=== PATIENT | male | born 1965 | race Caucasian/White ===

== ENCOUNTER → 2016-07-21 | Outpatient (CLI) | payer OTHER ==
[2016-07-21 13:37] LABS: ALANINE AMINOTRANSFERASE 35 U/L (21-72); ALBUMIN 4.6 g/dL (3.5-5.0); ALKALINE PHOSPHATASE 69 U/L (38-126); ANION GAP 11 (5-19); ASPARTATE AMINO TRANSFERASE 24 U/L (17-59); BLOOD UREA NITROGEN 19 mg/dL (7-20); CALCIUM 10.5 mg/dL (8.4-10.2); CARBON DIOXIDE 27 mmol/L (22-30); CHLORIDE 98 mmol/L (98-107); CHOLESTEROL 222.58 mg/dL (0-200); CREATININE RESULT 0.64 mg/dL (0.52-1.25); Direct HDL 41 mg/dL (>40); GLUCOSE 182 mg/dL (75-110); POTASSIUM 4.5 mmol/L (3.6-5.0); SODIUM 136.2 mmol/L (137-145); TRIGLYCERIDES 482 mg/dL (<150)
[2016-07-21 13:51] LABS: DIRECT LDL 103 mg/dL (<100)
== END ==
LOC: CCC 12:14
DX: E11.8 Type 2 diabetes mellitus with unspecified complications (principal)
CPT/HCPCS: 36415; 80053; 80061; 83036

== ENCOUNTER 2018-11-17 05:18 | Emergency (ER) | payer MEDICAID, OTHER ==
[2018-11-17] MEDS ORDERED: ASPIRIN 81 MG TABLET, CHEWABLE PO ONE (05:34)
[2018-11-17 05:53] LABS: ABSOLUTE BASOPHILS # (AUTO) 0.1 10^3/uL (0.0-0.2); ABSOLUTE EOSINOPHILS # (AUTO) 0.2 10^3/uL (0.0-0.6); ABSOLUTE LYMPHOCYTES (AUTO) 1.1 10^3/uL (0.5-4.7); ABSOLUTE MONOCYTES (AUTO) 0.7 10^3/uL (0.1-1.4); ABSOLUTE NEUT (AUTO) 8.1 10^3/uL (1.7-8.2); BASOPHILS % (AUTO) 0.8 % (0-2); EOSINOPHILS % (AUTO) 1.6 % (0-6); HEMATOCRIT 44.2 % (37.9-51.0); HEMOGLOBIN 15.7 g/dL (13.5-17.0); LYMPHOCYTES % (AUTO) 11.3 % (13-45); MEAN CORPUSCULAR HEMOGLOBIN 31.1 pg (27.0-33.4); MEAN CORPUSCULAR HGB CONC 35.6 g/dL (32.0-36.0); MEAN CORPUSCULAR VOLUME 87 fl (80-97); MONOCYTES % (AUTO) 6.8 % (3-13); PLATELET COUNT 154 10^3/uL (150-450); RED BLOOD COUNT 5.06 10^6/uL (4.35-5.55); SEGMENTED NEUTROPHILS % (AUTO) 79.5 % (42-78); TOTAL CELLS COUNTED % (AUTO) 100 %; WHITE BLOOD COUNT 10.1 10^3/uL (4.0-10.5)
[2018-11-17 06:13] LABS: ALANINE AMINOTRANSFERASE 39 U/L (21-72); ALBUMIN 4.7 g/dL (3.5-5.0); ALKALINE PHOSPHATASE 82 U/L (38-126); ANION GAP 11 (5-19); ASPARTATE AMINO TRANSFERASE 30 U/L (17-59); BILIRUBIN,DIRECT 0.3 mg/dL (0.0-0.4); BILIRUBIN,TOTAL 0.8 mg/dL (0.2-1.3); BLOOD UREA NITROGEN 22 mg/dL (7-20); CALCIUM 9.8 mg/dL (8.4-10.2); CARBON DIOXIDE 28 mmol/L (22-30); CHLORIDE 98 mmol/L (98-107); CREATINE KINASE 129 U/L (55-170); GLUCOSE 263 mg/dL (75-110); POTASSIUM 4.6 mmol/L (3.6-5.0); SODIUM 136.5 mmol/L (137-145); TOTAL PROTEIN 7.7 g/dL (6.3-8.2)
--- NOTE | 2018-11-17 06:15 | RADIOLOGY REPORT (SQ) ---
EXAM DESCRIPTION: XR CHEST 1 VIEW COMPLETED DATE/TME: 11/17/2018 05:34 CLINICAL HISTORY: 53 years, Male, chest pain COMPARISON: 01/19/2012 NUMBER OF VIEWS: One TECHNIQUE: AP view of the chest LIMITATIONS: None. FINDINGS: Bibasilar interstitial opacities. The heart is normal in size. There is no pneumothorax or pleural effusion. The bones are unremarkable. IMPRESSION: Bibasilar interstitial opacities, likely representing atelectasis or possibly pneumonia. copyright 2010 [employer]- All Rights Reserved
[2018-11-17 06:23] LABS: CREATINE KINASE MB 2.25 ng/mL (<4.55); TROPONIN I < 0.012 ng/mL
[2018-11-17] MEDS ORDERED: OXYCODONE-ACETAMINOPHEN 5-325 MG TABLET PO ONE (07:14)
[2018-11-17] MEDS ORDERED: ONDANSETRON HCL INJ/PF 4 MG/2 ML SDV IV ONE (07:14)
[2018-11-17] MEDS ORDERED: NORMAL SALINE 1000 ML 1,000 ML IV ONE (07:14)
--- NOTE | 2018-11-17 09:24 | RADIOLOGY REPORT (SQ) ---
EXAM DESCRIPTION: U/S ABDOMEN LIMITED W/O DOP COMPLETED DATE/TIME: 11/17/2018 9:06 am REASON FOR STUDY: epigastric pain, h/o pancreatitis COMPARISON: None. TECHNIQUE: Dynamic and static grayscale images acquired of the abdomen and recorded on PACS. Additio fletcher selected color Doppler and spectral images recorded. LIMITATIONS: None. FINDINGS: PANCREAS: Poorly seen. No obvious masses LIVER: Fatty infiltration. No focal masses. 18 cm. LIVER VASCULATURE: Normal directional flow of the main portal vein and hepatic veins. GALLBLADDER: No stones. Normal wall thickness. No pericholecystic fluid. ULTRASOUND-DETECTED NELSON'S SIGN: Negative. INTRAHEPATIC DUCTS AND COMMON DUCT: CBD and intrahepatic ducts normal caliber. No filling defects. INFERIOR VENA CAVA: Normal flow. AORTA: No aneurysm. RIGHT KIDNEY: Normal size. Normal echogenicity. No solid or suspicious masses. No hydronephrosis. No calcifications. PERITONEAL AND RIGHT PLEURAL SPACE: No ascites or effusions. OTHER: No other significant findings. IMPRESSION: Fatty infiltration of the liver. No gallstones. TECHNICAL DOCUMENTATION: JOB ID: [id number]- All Rights Reserved Reading location - IP/workstation name: [email or web address]
[2018-11-17 12:07] VITALS: BP 162/94
--- NOTE | 2018-11-17 12:09 | EKG REPORT ---
SEVERITY:- OTHERWISE NORMAL ECG - SINUS TACHYCARDIA BORDERLINE LEFT AXIS DEVIATION : Confirmed by: Dai Heredia MD 17-Nov-2018 12:09:01
--- NOTE | 2018-11-17 14:51 | ER Document Report ---
Entered by JOHN DALLAS SCRIBE 11/17/18 0816 Acting as scribe for:SEVERINO KNOTT DO ED General - General Chief Complaint: Chest Pain Stated Complaint: CHEST PAINS Time Seen by Provider: 11/17/18 06:18 Primary Care Provider: JHOAN DANIEL MD [Primary Care Provider] - Follow up as needed Mode of Arrival: Ambulatory Information source: Patient Notes: Patient is a 53 year old male with a history of recurrent pancreatitis, type 2 diabetes, neuropathy presents to the emergency department complaining of upper abdominal pain, chest pain, global headache and body soreness onset 4 days ago. Patient states he 1st developed generalized body soreness 4 days ago that he thought was the beginning of a cold. He states his abdominal pain is located across is upper abdomen, worse epigastrically that radiates into his chest. He states this pain is similar to prior episodes of pancreatitis. Patient states his pain significantly worsened last night. He further complains of abdominal distension and recently vomiting further stating he has a history of vomiting every 5-6 weeks due to his medical history. He denies any diarrhea, vision changes fevers or hematemesis. Patient also complains of general numbness in his joints and reports increased sleepiness further stating he has been sleeping approximately 18hrs for the last few days. He further complains of a possible oral infection further stating he is having pain around is left maxilla. Patient reports taking 25 units of Lipase and gabbapentin. TRAVEL OUTSIDE OF THE [place] IN LAST 30 DAYS: No - Related Data Allergies/Adverse Reactions: hydromorphone [From Dilaudid] Allergy (Verified 05/22/16 00:18) Past Medical History - General Information source: Patient - Social History Smoking Status: Current Every Day Smoker Cigarette use (# per day): Yes Chew tobacco use (# tins/day): No Smoking Education Provided: No Frequency of alcohol use: None Drug Abuse: None Lives with: Family Family History: Reviewed & Not Pertinent Patient has suicidal ideation: No Patient has homicidal ideation: No Endocrine Medical History: Reports: Hx Diabetes Mellitus Type 2 GI Medical History: Reports: Hx Pancreatitis Past Surgical History: Reports: Hx Orthopedic Surgery - right hip replacement - Immunizations Hx Diphtheria, Pertussis, Tetanus Vaccination: Yes Review of Systems - Review of Systems Constitutional: See HPI EENT: No symptoms reported Cardiovascular: See HPI, Chest pain Respiratory: No symptoms reported Gastrointestinal: See HPI, Abdominal pain, Vomiting Genitourinary: No symptoms reported Male Genitourinary: No symptoms reported Musculoskeletal: See HPI Skin: No symptoms reported Hematologic/Lymphatic: No symptoms reported Neurological/Psychological: No symptoms reported -: Yes All other systems reviewed and negative Physical Exam - Vital signs Vitals: Temp Pulse Resp BP Pulse Ox 98.5 F 113 H 28 H 166/93 H 93 11/17/18 05:35 11/17/18 05:35 11/17/18 05:35 11/17/18 05:35 11/17/18 05:35 - Notes Notes: GENERAL: Alert, interacts well. No acute distress. HEAD: Normocephalic, atraumatic. EYES: Pupils equal, round, and reactive to light. Extraocular movements intact. ENT: Oral mucosa moist, tongue midline. No erythema around the left medial and lateral upper incisors, no signs of infection. NECK: Full range of motion. Supple. Trachea midline. No meningismus, able to fl ex, extend and move neck from side to side without difficulty. LUNGS: Deep inspirations, stops before full capacity breath. Clear to auscultation bilaterally, no wheezes, rales, or rhonchi. No respiratory distress. HEART: Regular rate and rhythm. No murmurs, gallops, or rubs. ABDOMEN: Soft, tender to palpation epigastrically, guarding. Non-distended. Bowel sounds present in all 4 quadrants. No rigidity or rebounding. EXTREMITIES: Moves all 4 extremities spontaneously. No edema, radial and dorsalis pedis pulses 2/4 bilaterally. No cyanosis. NEUROLOGICAL: Alert and oriented x3. Normal speech. PSYCH: Normal affect, normal mood. SKIN: Warm, dry, normal turgor. No rashes or lesions noted. Course - Re-evaluation Re-evalutation: 11/17/18 11:32 CBC unremarkable, CMP shows elevated glucose and slightly elevated BUN, troponin negative x2, lipase elevated at 2725.7. Abdominal ultrasound does not show any acute process, pancreas is not well-visualized. No signs of cholecystitis or cholelithiasis. Chest x-ray shows bilateral atelectasis versus pneumonia. Suspect atelectasis due to pain from pancreatitis rather than pneumonia as he does not have a significant change to his cough, any leukocytosis or any fever. I have observed the patient taking shallow breaths due to pain. Patient will be treated with an incentive spirometer for the atelectasis. Asked to return for fever or worsening cough or increasing pain. [place] otitis will be treated with clear liquid diet, limited course of Percocet, Zofran and Phenergan. Discharged home. - Vital Signs Vital signs: Temp Pulse Resp BP Pulse Ox 98.3 F 113 H 26 H 162/94 H 95 11/17/18 11:49 11/17/18 05:35 11/17/18 12:01 11/17/18 12:01 11/17/18 12:01 - Laboratory Result Diagrams: 11/17/18 05:42 11/17/18 05:42 Laboratory results interpreted by me: 11/17/18 11/17/18 11/17/18 05:42 05:42 05:42 Seg Neutrophils % 79.5 H Lymphocytes % 11.3 L Sodium 136.5 L BUN 22 H Glucose 263 H Lipase 2725.7 H Discharge - Discharge Clinical Impression: Atelectasis of both lungs Acute pancreatitis Qualifiers: Pancreatitis type: unspecified pancreatitis type Acute pancreatitis complication: no infection or necrosis Qualified Code(s): K85.90 - Acute pancreatitis without necrosis or infection, unspecified Condition: Stable Disposition: HOME, SELF-CARE Additional Instructions: Pancreatitis Pancreatitis is an inflammation of the pancreas, an organ at the back of your abdomen. The pancreas produces insulin and enzymes that digest your food. Pancreatitis can be caused by gallstones in the bile duct, by alcohol or viruses, or by excess fat or calcium in the blood stream. Occasionally, pancreatitis occurs when a stomach ulcer reyes through into the pancreas. We try to find the cause of pancreatitis, but some tests can't be done until the pancreas heals. The usual symptoms of pancreatitis are pain in the pit of the stomach that goes straight through to the back, vomiting, and low-grade fever. Severe cases require hospital admission, but many patients with mild pancreatitis do well at home. You will probably need medicine for pain and for vomiting. Sometimes we prescribe medicine to decrease stomach acid secretion and to decrease flow of pancreatic juices. Start with a diet of clear liquids (soda pop, juices). When the pain is decreasing, you can add some simple starches (potato, toast, applesauce). Avoid proteins and fats until you are completely painfree. When you're better, your doctor may suggest treatment to prevent future pancreatitis (such as gallbladder removal). Avoid alcohol forever. Get imm ediate treatment for any future episodes. Contact your doctor at once or return here if you have increasing pain, shortness of breath, general swelling, increasing size of the abdomen, continued vomiting, muscle spasms, or other new symptoms. Atelectasis Your symptoms are due to partial collapse of the lung, called atelectasis. When lung air sacs aren't filled properly with air, they can collapse. This is common after surgery. It may occur whenever breathing is weak or painful. To correct the collapse, we need to get your lung air sacs to open. Do b reathing exercises for the next two days. Every 15 minutes while awake, rapidly suck in a full breath and hold it a few seconds. Sometimes we'll prescribe a machine to measure your progress. Call or return if there's increasing shortness of breath, fever or chills, increasing chest pain, productive cough, or coughing of blood. Prescriptions: Oxycodone HCl/Acetaminophen [Percocet 5-325 mg Tablet] 1 tab PO Q4HP PRN #15 tablet PRN Reason: Promethazine HCl [Phenergan 25 mg Tablet] 25 mg PO Q4HP PRN #14 tablet PRN Reason: Ondansetron [Zofran Odt 4 mg Tablet] 1 - 2 tab PO Q4H PRN #15 tab.rapdis PRN Reason: For Nausea/Vomiting Referrals: JHOAN DANIEL MD [Primary Care Provider] - Follow up as needed I personally performed the services described in the documentation, reviewed and edited the documentation which was dictated to the scribe in my presence, and it accurately records my words and actions.
== END 2018-11-17 12:07 | disposition home or self-care (01) ==
LOC: ER 05:18
DX: J98.11 Atelectasis (principal); K85.90 Acute pancreatitis without necrosis or infection, unspecified; R07.9 Chest pain, unspecified; R10.9 Unspecified abdominal pain; R11.10 Vomiting, unspecified; F17.210 Nicotine dependence, cigarettes, uncomplicated; E11.9 Type 2 diabetes mellitus without complications; Z96.641 Presence of right artificial hip joint
CPT/HCPCS: 93005; 99285; 96361; 96374; 36415; 82553; 82550; 83690; 85025; 80053; 84484; 71045; 76705; 93010; J2405; J7030

== ENCOUNTER 2019-07-03 00:27 | Inpatient (IN) | payer MEDICAID ==
[2019-07-03] MEDS ORDERED: NORMAL SALINE 1000 ML 1,000 ML IV ONE ×2 (01:02→06:22)
--- NOTE | 2019-07-03 01:07 | ER Document Report ---
ED Medical Screen (RME) - General Chief Complaint: Foot Pain Stated Complaint: RIGHT LEG/FOOT DISCOLORED,SWOLLEN,SUGAR ISSUES Time Seen by Provider: 07/03/19 01:02 Primary Care Provider: JHOAN DANIEL MD [Primary Care Provider] - Follow up as needed Information source: Patient Notes: Patient presents with pain to right lower extremity. Patient with redness, swelling and warmth to right foot with streaking that extends to the right lower leg. Patient reports that blood sugars been elevated at home despite taking his medications. Accu-Chek in triage is 382 mg/dL. Patient with diabetic foot wound to plantar surface of right foot. Patient was not aware that he had this. When patient was asked if he had had a fever, patient replies that he had flu over the weekend in which he had subjective fever and was in his bed the entire time. Patient was not tested for influenza. Patient with a history of diabetes, neuropathy and chronic pancreatitis. Patient states he has a history of hypertension although is not compliant with antihypertensive medications. I have greeted and performed a rapid initial assessment of this patient. A comprehensive ED assessment and evaluation of the patient, analysis of test results and completion of the medical decision making process will be conducted by additional ED providers. TRAVEL OUTSIDE OF THE [place] IN LAST 30 DAYS: No - Related Data Allergies/Adverse Reactions: hydromorphone [From Dilaudid] Allergy (Verified 07/03/19 01:05) debra Allergy (Verified 07/03/19 01:05) Past Medical History Endocrine Medical History: Reports: Hx Diabetes Mellitus Type 2 Renal/ Medical History: Denies: Hx Peritoneal Dialysis GI Medical History: Reports: Hx Pancreatitis Past Surgical History: Reports: Hx Orthopedic Surgery - right hip replacement - Immunizations Hx Diphtheria, Pertussis, Tetanus Vaccination: Yes Physical Exam - Vital signs Vitals: Temp Pulse Resp BP Pulse Ox 98.3 F 93 20 154/81 H 95 07/03/19 00:45 07/03/19 00:45 07/03/19 00:45 07/03/19 00:45 07/03/19 00:45 - General Notes: Erythema to right foot with streaking to the right lower leg. Tenderness to right lower leg and right medial thigh. Patient with foot ulcer to the plantar surface of the right foot. Patient with 2+ dorsalis pedis pulse. Course - Vital Signs Vital signs: Temp Pulse Resp BP Pulse Ox 98.3 F 93 20 154/81 H 95 07/03/19 00:45 07/03/19 00:45 07/03/19 00:45 07/03/19 00:45 07/03/19 00:45 - Laboratory Laboratory results interpreted by me: 07/03/19 00:55 POC Glucose 382 H Doctor's Discharge - Discharge Referrals: JHOAN DANIEL MD [Primary Care Provider] - Follow up as needed
[2019-07-03 02:13] LABS: ABSOLUTE LYMPHOCYTES (AUTO) 0.9 10^3/uL (0.5-4.7); ABSOLUTE MONOCYTES (AUTO) 0.6 10^3/uL (0.1-1.4); ABSOLUTE NEUT (AUTO) 6.4 10^3/uL (1.7-8.2); BASOPHILS % (AUTO) 0.2 % (0-2); EOSINOPHILS % (AUTO) 0.5 % (0-6); HEMATOCRIT 41.9 % (37.9-51.0); HEMOGLOBIN 14.4 g/dL (13.5-17.0); LYMPHOCYTES % (AUTO) 11.7 % (13-45); MEAN CORPUSCULAR HEMOGLOBIN 29.6 pg (27.0-33.4); MEAN CORPUSCULAR HGB CONC 34.4 g/dL (32.0-36.0); MEAN CORPUSCULAR VOLUME 86 fl (80-97); MONOCYTES % (AUTO) 7.5 % (3-13); PLATELET COUNT 116 10^3/uL (150-450); RED BLOOD COUNT 4.87 10^6/uL (4.35-5.55); RED CELL DISTRIBUTION WIDTH 14.1 % (11.5-14.0); SEGMENTED NEUTROPHILS % (AUTO) 80.1 % (42-78); TOTAL CELLS COUNTED % (AUTO) 100 %; WHITE BLOOD COUNT 7.9 10^3/uL (4.0-10.5)
--- NOTE | 2019-07-03 02:15 | RADIOLOGY REPORT (SQ) ---
Right foot radiographs: 07/03/2019 1:13 AM COMMUNITY REPRESENTATIVE TECHNIQUE: AP, lateral, oblique images of the right foot were obtained. COMPARISON: None available History: 53-year-old patient with Diabetic foot ulcer FINDINGS: There is some lucency seen at the base of the second toe which could represent an area of ulceration. There are no acute osseous abnormalities to suggest a fracture or subluxation within the right foot. There is evidence of Achilles enthesopathy. If there is concern for osteomyelitis, an MRI or multiphasic bone scan should be considered. IMPRESSION: No acute osseous abnormality is seen within the right foot.
[2019-07-03 02:29] LABS: ALBUMIN 3.7 g/dL (3.5-5.0); ALKALINE PHOSPHATASE 84 U/L (38-126); ANION GAP 10 (5-19); ASPARTATE AMINO TRANSFERASE 33 U/L (17-59); BILIRUBIN,DIRECT 0.3 mg/dL (0.0-0.4); BILIRUBIN,TOTAL 0.6 mg/dL (0.2-1.3); BLOOD UREA NITROGEN 18 mg/dL (7-20); CARBON DIOXIDE 29 mmol/L (22-30); CHLORIDE 97 mmol/L (98-107); GLUCOSE 373 mg/dL (75-110); POTASSIUM 4.2 mmol/L (3.6-5.0); TOTAL PROTEIN 6.6 g/dL (6.3-8.2)
[2019-07-03 05:06] LABS: VENOUS BLOOD HCO3 24.7 mmol/L (20-32); VENOUS BLOOD PCO2 40.6 mmHg (35-63); VENOUS BLOOD PH 7.4 (7.30-7.42)
[2019-07-03] MEDS ORDERED: VANCOMYCIN HCL INJ 1000 MG VIAL IV ONE (06:22)
--- NOTE | 2019-07-03 07:17 | ER Document Report ---
ED Extremity Problem, Lower - General Chief Complaint: Wound Infection Stated Complaint: RIGHT LEG/FOOT DISCOLORED,SWOLLEN,SUGAR ISSUES Time Seen by Provider: 07/03/19 01:02 Primary Care Provider: JHOAN DANIEL MD [HONORARY] - Follow up as needed Mode of Arrival: Ambulatory Information source: Patient TRAVEL OUTSIDE OF THE [place] IN LAST 30 DAYS: No - HPI Notes: Patient presents with right foot pain. He states his right foot and leg have been progressively swelling and hurting for the last week. He states that this pain is a throbbing and sharp pain. It radiates up the right leg. It is worse with movement and better with rest. It is constant. He has had no fever or chills. He states he is diabetic. He states he does not know of any trauma to the leg. No vomiting or diarrhea. - Related Data Allergies/Adverse Reactions: hydromorphone [From Dilaudid] Allergy (Verified 07/03/19 01:05) debra Allergy (Verified 07/03/19 01:05) Past Medical History - General Information source: Patient - Social History Smoking Status: Current Every Day Smoker Chew tobacco use (# tins/day): No Frequency of alcohol use: None Drug Abuse: None Family History: Reviewed & Not Pertinent Patient has suicidal ideation: No Patient has homicidal ideation: No Endocrine Medical History: Reports: Hx Diabetes Mellitus Type 2 Renal/ Medical History: Denies: Hx Peritoneal Dialysis GI Medical History: Reports: Hx Pancreatitis Past Surgical History: Reports: Hx Orthopedic Surgery - right hip replacement - Immunizations Hx Diphtheria, Pertussis, Tetanus Vaccination: Yes Review of Systems - Review of Systems Constitutional: denies: Chills, Fever Cardiovascular: denies: Chest pain, Palpitations Respiratory: denies: Cough, Short of breath Gastrointestinal: denies: Diarrhea, Vomiting -: Yes All other systems reviewed and negative Physical Exam - Vital signs Vitals: Temp Pulse Resp BP Pulse Ox 98.3 F 93 20 154/81 H 95 07/03/19 00:45 07/03/19 00:45 07/03/19 00:45 07/03/19 00:45 07/03/19 00:45 Interpretation: Hypertensive - General General appearance: Appears well, Alert In distress: None - HEENT Head: Normocephalic, Atraumatic Eyes: Normal Pupils: PERRL - Respiratory Respiratory status: No respiratory distress Chest status: Nontender Breath sounds: Normal Chest palpation: Normal - Cardiovascular Rhythm: Regular Heart sounds: Normal auscultation Murmur: No - Abdominal Inspection: Normal Distension: No distension Bowel sounds: Normal Tenderness: Nontender Organomegaly: No organomegaly - Back Back: Normal, Nontender - Extremities General upper extremity: Normal inspection, Nontender, Normal color, Normal ROM, Normal temperature General lower extremity: Other - Patient's right lower extremity has diffuse swelling of the foot and lower leg. Patient has signs of lymphangitis. Patient has tenderness about the foot and lower leg as well. Patient has erythema and warmth of this area as well. Exam is consistent with cellulitis. Patient has some small areas of necrosis to the sole of the right foot.. No: Marjan's sign - Neurological Neuro grossly intact: Yes Cognition: Normal Orientation: AAOx4 [place] Coma Scale Eye Opening: Spontaneous [place] Coma Scale Verbal: Oriented [place] Coma Scale Motor: Obeys Commands [place] Coma Scale Total: 15 Speech: Normal Motor strength normal: LUE, RUE, LLE, RLE Sensory: Normal - Psychological Associated symptoms: Normal affect, Normal mood - Skin Skin Temperature: Warm Skin Moisture: Dry Skin Color: Normal Course - Re-evaluation Re-evalutation: 07/03/19 07:15 Patient has an obvious diabetic foot infection with extension of the cellulitis into the lower leg with lymphangitis. He will be started on fluids and antibiotics and admitted to the hospital. - Vital Signs Vital signs: Temp Pulse Resp BP Pulse Ox 98.5 F 88 20 167/86 H 94 07/03/19 04:21 07/03/19 04:21 07/03/19 04:21 07/03/19 04:21 07/03/19 04:21 - Laboratory Result Diagrams: 07/03/19 01:25 07/03/19 01:25 Laboratory results interpreted by me: 07/03/19 07/03/19 07/03/19 00:55 01:25 01:25 RDW 14.1 H Plt Count 116 L Lymph % (Auto) 11.7 L Seg Neutrophils % 80.1 H Sodium 135.5 L Chloride 97 L Glucose 373 H POC Glucose 382 H - Diagnostic Test Radiology reviewed: Image reviewed, Reports reviewed Discharge - Discharge Clinical Impression: Diabetic infection of right foot, Cellulitis of right lower leg Condition: Fair Disposition: ADMITTED INPATIENT Admitting Provider: Mitchell (Hospitalist) Unit Admitted: Medical Floor Referrals: JHOAN DANIEL MD [HONORARY] - Follow up as needed
[2019-07-03] MEDS ORDERED: MORPHINE SULFATE 10 MG/ML INJ IV ONE (07:45)
[2019-07-03] MEDS ORDERED: ONDANSETRON HCL INJ/PF 4 MG/2 ML SDV IV PRN (08:46)
[2019-07-03] MEDS ORDERED: MAGNESIUM HYDROXIDE SUSP 30 ML UDCUP PO PRN (08:46)
[2019-07-03] MEDS ORDERED: IPRATROPIUM/ALBUTEROL 0.5-2.5 MG/3 ML AMPUL NEB PRN (08:46)
[2019-07-03] MEDS ORDERED: TEMAZEPAM 15 MG CAPSULE PO PRN (08:46)
[2019-07-03] MEDS ORDERED: ZOLPIDEM TARTRATE 5 MG TABLET PO PRN (08:46)
[2019-07-03] MEDS ORDERED: DEXTROSE 50%-WATER 25 GM/50 ML DISP.SYRIN IV PRN ×2 (09:08)
[2019-07-03] MEDS ORDERED: DEXTROSE 40% GEL 15 GM TUBE PO PRN ×2 (09:08)
[2019-07-03] MEDS ORDERED: GLUCAGON,HUMAN RECOMB 1 MG INJ IM PRN (09:08)
[2019-07-03] MEDS ORDERED: VANCOMYCIN HCL 0 MG in DEXTROSE 5%-WATER 250 ML IV NR (09:15)
[2019-07-03] MEDS ORDERED: INSULIN GLARGINE,HUM.REC.ANLOG 1,000 UNIT/10 ML VIAL SUBCUT SCH (10:00)
[2019-07-03] MEDS ORDERED: ENOXAPARIN SODIUM INJ 40 MG/0.4 ML DISP.SYRIN SUBCUT ONE (12:15)
[2019-07-03] MEDS ORDERED: CEFEPIME 1 GM/D5W RTU 1 GM/50 ML RTUPB IV ONE (12:15)
[2019-07-03] MEDS ORDERED: INSULIN GLARGINE,HUM.REC.ANLOG 1,000 UNIT/10 ML VIAL SUBCUT ONE (12:15)
[2019-07-03] MEDS: INSULIN REG, HUMAN 100 UNIT/ML 3 ML VIAL (PYX) SUBCUT SCH ×3 (13:28→22:19)
[2019-07-03] MEDS: DOCUSATE SODIUM 100 MG CAPSULE PO SCH (13:31)
[2019-07-03] MEDS: ENOXAPARIN SODIUM INJ 40 MG/0.4 ML DISP.SYRIN SUBCUT SCH (13:53)
[2019-07-03] MEDS: CEFEPIME 1 GM/D5W RTU 1 GM/50 ML RTUPB IV SCH ×2 (13:54→22:19)
[2019-07-03] MEDS: VANCOMYCIN HCL 1,000 MG in DEXTROSE 5%-WATER 250 ML IV SCH (15:27)
[2019-07-03] MEDS: OXYCODONE-ACETAMINOPHEN 5-325 MG TABLET PO PRN ×2 (15:27→22:18)
[2019-07-03] MEDS ORDERED: PROTEASE PO SCH ×2 (17:00)
[2019-07-03] MEDS ORDERED: LIPASE PO SCH ×2 (17:00)
[2019-07-03] MEDS ORDERED: AMYLASE PO SCH ×2 (17:00)
[2019-07-03] MEDS ORDERED: LIPASE/PROTEASE/AMYLASE 1 CAP CAPSULE.DR PO PRN (17:07)
--- NOTE | 2019-07-03 17:28 | PDOC H&P ---
History of Present Illness Admission Date/PCP: 07/03/19 08:16 GARETH KNIGHT NP History of Present Illness: CHONG TIAN is a 53 year old male. Who presents to the hospital with complaints of leg swelling and pain which started about 3 days ago. He denies any prior injury. He denies any fever nausea vomiting. He does have a history of type 2 diabetes mellitus that appears to be poorly controlled. He was noted to have a cellulitis in the emergency room and so he is been admitted for further management Past Medical History Cardiac Medical History: Reports: None Pulmonary Medical History: Reports: None Neurological Medical History: Reports: None Endocrine Medical History: Reports: Diabetes Mellitus Type 2 Past Surgical History Past Surgical History: Reports: None, Orthopedic Surgery - right hip replacement Social History Information Source: Patient Lives with: Family Smoking Status: Current Every Day Smoker Cigarettes Packs Per Day: 1 Electronic Cigarette use?: No Frequency of Alcohol Use: None Drugs: None Family History Family History: Reviewed & Not Pertinent Parental Family History Reviewed: Yes Children Family History Reviewed: Yes Sibling(s) Family History Reviewed.: Yes Medication/Allergy Home Medications: Dapagliflozin Propanediol [Farxiga] 10 mg PO QAM 07/03/19 Gabapentin [Neurontin 300 mg Capsule] 600 mg PO Q8 07/03/19 Glimepiride [Amaryl 4 mg Tablet] 4 mg PO BID 07/03/19 Insulin Glargine,Hum.rec.anlog [[place] Solostar] 40 units SQ QAM 07/03/19 Lipase/Protease/Amylase [Zenpep Dr 40,000 Unit Capsule] 1 cap PO .SNACKS 07/03/19 Lipase/Protease/Amylase [Zenpep Dr 40,000 Unit Capsule] 1 cap PO MEALS 07/03/19 RX: Omeprazole 20 mg PO DAILY 07/03/19 Allergies/Adverse Reactions: hydromorphone [From Dilaudid] Allergy (Verified 07/03/19 01:05) debra Allergy (Verified 07/03/19 01:05) Review of Systems All systems: reviewed and no additional remarkable complaints except as stated Gastrointestinal: PRESENT: other - pancreatitis Integumentary: PRESENT: erythema Physical Exam Vital Signs: Temp Pulse Resp BP Pulse Ox 98.7 F 89 24 H 164/88 H 96 07/03/19 15:22 07/03/19 15:22 07/03/19 15:22 07/03/19 15:22 07/03/19 15:22 Intake & Output 07/02/19 07/03/19 07/04/19 06:59 06:59 06:59 Intake Total 1000 1000 Balance 1000 1000 Weight 106.5 kg 94.8 kg General appearance: PRESENT: no acute distress, well-developed, well-nourished Head exam: PRESENT: atraumatic, normocephalic Eye exam: PRESENT: conjunctiva pink, EOMI, PERRLA. ABSENT: scleral icterus Ear exam: PRESENT: normal external ear exam Mouth exam: PRESENT: moist, tongue midline Neck exam: ABSENT: carotid bruit, JVD, lymphadenopathy, thyromegaly Respiratory exam: PRESENT: clear to auscultation arsenio. ABSENT: rales, rhonchi, wheezes Cardiovascular exam: PRESENT: RRR. ABSENT: diastolic murmur, rubs, systolic murmur Pulses: PRESENT: normal dorsalis pedis pul Vascular exam: PRESENT: normal capillary refill GI/Abdominal exam: PRESENT: normal bowel sounds, soft. ABSENT: distended, guarding, mass, organolmegaly, rebound, tenderness Rectal exam: PRESENT: deferred Extremities exam: PRESENT: calf tenderness, pedal edema, tenderness, +2 edema - RLE. ABSENT: clubbing Musculoskeletal exam: PRESENT: other - RLE swelling and erythema, tenderness R doe, small abrasions R foot and dermatitis R interdigital 1/2 toes Neurological exam: PRESENT: alert, awake, oriented to person, oriented to place, oriented to time, oriented to situation, CN II-XII grossly intact. ABSENT: motor sensory deficit Psychiatric exam: PRESENT: appropriate affect, normal mood. ABSENT: homicidal ideation, suicidal ideation Skin exam: PRESENT: dry, intact, warm. ABSENT: cyanosis, rash Results Laboratory Results: 07/03/19 01:25 07/03/19 01:25 07/03/19 07/03/19 07/03/19 01:25 01:25 04:32 WBC 7.9 RBC 4.87 Hgb 14.4 Hct 41.9 MCV 86 MCH 29.6 MCHC 34.4 RDW 14.1 H Plt Count 116 L Seg Neutrophils % 80.1 H VBG pH 7.40 VBG pCO2 40.6 VBG HCO3 24.7 VBG Base Excess 0 Sodium 135.5 L Potassium 4.2 Chloride 97 L Carbon Dioxide 29 Anion Gap 10 BUN 18 Creatinine 0.86 Est GFR ( Amer) > 60 Glucose 373 H Calcium 9.0 Total Bilirubin 0.6 AST 33 Alkaline Phosphatase 84 Total Protein 6.6 Albumin 3.7 Impressions: Foot X-Ray 07/03/19 01:02 IMPRESSION: No acute osseous abnormality is seen within the right foot. Assessment and Plan - Diagnosis (1) Diabetic infection of right foot Is this a current diagnosis for this admission?: Yes Plan: Patient was started on vancomycin as well as cefepime in the emergency room I will go ahead and continue with these pending further evaluation and will adjust antibiotics depending on his hospital course. I will also go ahead and order a venous Doppler to rule out underlying thromboembolism although it does appear that this is an infectious process (2) Diabetes mellitus Qualifiers: Diabetes mellitus type: type 2 Diabetes mellitus complication detail: with unspecified neuropathy Is this a current diagnosis for this admission?: Yes Plan: We will place patient on daily scale insulin and adjust his basal insulin. We will also check hemoglobin A1c. It appears patient has not really been too compliant with his medications or diet although he states his blood sugar has been relatively controlled until recently. (3) Cellulitis of right lower leg Is this a current diagnosis for this admission?: Yes Plan: See plan as above (4) Chronic pancreatitis Qualifiers: Pancreatitis type: alcohol induced Qualified Code(s): K86.0 - Alcohol- induced chronic pancreatitis Is this a current diagnosis for this admission?: Yes Plan: Patient says he has had a diagnosis of chronic bronchitis for about 20 years. He stopped drinking around that time. He does take pancreatic enzymes. We will continue with same. He denies any abdominal pain or any recent flare - Time Time Spent with patient: 25-34 minutes Medications reviewed and adjusted accordingly: Yes Within: within 72 hours - Inpatient Certification Based on my medical assessment, after consideration of the patient's comorbidities, presenting symptoms, or acuity I expect that the services needed warrant INPATIENT care.: Yes I certify that my determination is in accordance with my understanding of Medicare's requirements for reasonable and necessary INPATIENT services [42 CFR 412.3e].: Yes Medical Necessity: Need for IV Antibiotics, Risk of Complication if Not Cared For in Hospital
[2019-07-03] MEDS: GLIMEPIRIDE 4 MG TABLET PO SCH (17:44)
[2019-07-03] MEDS ORDERED: KETOROLAC TROMETHAMINE INJ/PF 30 MG/1 ML SDV IV PRN (20:24)
[2019-07-03] MEDS ORDERED: KETOROLAC TROMETHAMINE INJ/PF 30 MG/1 ML SDV IV ONE (20:45)
[2019-07-03] MEDS: GABAPENTIN 300 MG CAPSULE PO SCH (22:18)
[2019-07-04] MEDS: VANCOMYCIN HCL 1,000 MG in DEXTROSE 5%-WATER 250 ML IV SCH ×2 (00:03→05:21)
[2019-07-04] MEDS: GABAPENTIN 300 MG CAPSULE PO SCH ×3 (05:21→22:37)
[2019-07-04] MEDS: PANTOPRAZOLE SODIUM 20 MG TABLET.DR PO SCH (05:21)
[2019-07-04 07:14] LABS: ABSOLUTE EOSINOPHILS # (AUTO) 0.1 10^3/uL (0.0-0.6); ABSOLUTE LYMPHOCYTES (AUTO) 0.8 10^3/uL (0.5-4.7); ABSOLUTE MONOCYTES (AUTO) 0.5 10^3/uL (0.1-1.4); ABSOLUTE NEUT (AUTO) 6.3 10^3/uL (1.7-8.2); BASOPHILS % (AUTO) 0.1 % (0-2); EOSINOPHILS % (AUTO) 0.9 % (0-6); HEMATOCRIT 37.9 % (37.9-51.0); HEMOGLOBIN 12.9 g/dL (13.5-17.0); LYMPHOCYTES % (AUTO) 10.1 % (13-45); MEAN CORPUSCULAR HEMOGLOBIN 29.2 pg (27.0-33.4); MEAN CORPUSCULAR HGB CONC 33.9 g/dL (32.0-36.0); MEAN CORPUSCULAR VOLUME 86 fl (80-97); MONOCYTES % (AUTO) 6.9 % (3-13); PLATELET COUNT 107 10^3/uL (150-450); RED CELL DISTRIBUTION WIDTH 14.2 % (11.5-14.0); TOTAL CELLS COUNTED % (AUTO) 100 %; WHITE BLOOD COUNT 7.6 10^3/uL (4.0-10.5)
[2019-07-04 07:30] LABS: ANION GAP 6 (5-19); BLOOD UREA NITROGEN 14 mg/dL (7-20); CALCIUM 8.4 mg/dL (8.4-10.2); CARBON DIOXIDE 28 mmol/L (22-30); CHLORIDE 101 mmol/L (98-107); GLUCOSE 192 mg/dL (75-110); POTASSIUM 4.2 mmol/L (3.6-5.0)
[2019-07-04 07:33] LABS: VANCOMYCIN,TROUGH 7.9 ug/mL (5.0-20.0)
[2019-07-04] MEDS: INSULIN REG, HUMAN 100 UNIT/ML 3 ML VIAL (PYX) SUBCUT SCH ×4 (07:41→21:46)
[2019-07-04] MEDS: LIPASE/PROTEASE/AMYLASE 1 CAP CAPSULE.DR PO SCH ×3 (07:42→17:19)
[2019-07-04] MEDS: KETOROLAC TROMETHAMINE INJ/PF 30 MG/1 ML SDV IV PRN ×2 (07:54→18:17)
[2019-07-04] MEDS ORDERED: INSULIN GLARGINE HUM REC ANLOG 20 UNIT SUBCUT SCH (08:00)
--- NOTE | 2019-07-04 08:38 | XCELERA REPORT ---
[address] [place] [facility] [address] Lower Extremity Venous Evaluation Procedure: Color flow and duplex imaging of the veins of the right lower extremity as well as the left Common Femoral vein. Right Sided Venous Evaluation Normal vessel filling wall to wall, compression and augmentation as well as Colour flow down to the infrageniculate veins. Left Sided Venous Evaluation The left common femoral vein is fully compressible. Spontaneous and phasic flow is present in the left common femoral vein. Interpretation Summary No duplex evidence of DVT or obstruction in the right lower extremity nor in the left Common Femoral vein. Name: CHONG TIAN Age: 53 yrs Gender: Male : 1965 Patient Status: Inpatient Patient Location: [address] [place] [address] Study Date: 07/03/2019 07:41 PM Reason For Study: Swelling and pain, erythema Ordering Physician: ALECIA FLORES Performed By: Sona Spangler : ALECIA FLORES > Carlos Ferguson
[2019-07-04] MEDS: ENOXAPARIN SODIUM INJ 40 MG/0.4 ML DISP.SYRIN SUBCUT SCH (09:33)
[2019-07-04] MEDS: GLIMEPIRIDE 4 MG TABLET PO SCH ×2 (09:37→17:19)
[2019-07-04] MEDS: DOCUSATE SODIUM 100 MG CAPSULE PO SCH (09:37)
[2019-07-04] MEDS: CEFEPIME 1 GM/D5W RTU 1 GM/50 ML RTUPB IV SCH ×2 (10:34→22:37)
[2019-07-04] MEDS: VANCOMYCIN HCL 1,500 MG in DEXTROSE 5%-WATER 250 ML IV SCH (13:23)
--- NOTE | 2019-07-04 14:14 | PDOC PROGRESS REPORT ---
Subjective Progress Note for:: 07/04/19 Subjective:: Patient says he feels better today. The swelling and pain is less although still symptomatic Reason For Visit: CELLULITIS,TYPE 2 DM Physical Exam Vital Signs: Temp Pulse Resp BP Pulse Ox 98.5 F 80 21 H 146/77 H 95 07/04/19 10:57 07/04/19 10:57 07/04/19 10:57 07/04/19 10:57 07/04/19 10:57 Intake & Output 07/03/19 07/04/19 07/05/19 06:59 06:59 06:59 Intake Total 1000 1850 50 Output Total 100 Balance 1000 1750 50 Weight 106.5 kg 96.3 kg General appearance: PRESENT: no acute distress, cooperative Head exam: PRESENT: atraumatic Neck exam: ABSENT: JVD, tenderness Respiratory exam: PRESENT: clear to auscultation arsenio, unlabored. ABSENT: wheezes Cardiovascular exam: PRESENT: RRR, +S1, +S2 GI/Abdominal exam: PRESENT: normal bowel sounds, soft Rectal exam: PRESENT: deferred Musculoskeletal exam: PRESENT: ambulatory, tenderness, other - erythema, swelling, improved but still erythematous and tender Skin exam: PRESENT: abrasion, erythema, rash, warm Results Laboratory Results: 07/04/19 06:10 07/04/19 06:10 07/04/19 07/04/19 06:10 06:10 WBC 7.6 RBC 4.40 Hgb 12.9 L Hct 37.9 MCV 86 MCH 29.2 MCHC 33.9 RDW 14.2 H Plt Count 107 L Seg Neutrophils % 82.0 H Sodium 135.4 L Potassium 4.2 Chloride 101 Carbon Dioxide 28 Anion Gap 6 BUN 14 Creatinine 0.68 Est GFR ( Amer) > 60 Glucose 192 H Calcium 8.4 Impressions: Foot X-Ray 07/03/19 01:02 IMPRESSION: No acute osseous abnormality is seen within the right foot. Assessment and Plan - Diagnosis (1) Diabetic infection of right foot Is this a current diagnosis for this admission?: Yes Plan: Continue with Vanc and Cefepime Day 2 (2) Diabetes mellitus Qualifiers: Diabetes mellitus type: type 2 Diabetes mellitus complication detail: with unspecified neuropathy Is this a current diagnosis for this admission?: Yes Plan: Continue to adjust insulin as needed (3) Cellulitis of right lower leg Is this a current diagnosis for this admission?: Yes Plan: See plan as above (4) Chronic pancreatitis Qualifiers: Pancreatitis type: alcohol induced Qualified Code(s): K86.0 - Alcohol- induced chronic pancreatitis Is this a current diagnosis for this admission?: Yes Plan: Patient says he has had a diagnosis of chronic pancreatitis for about 20 years. - Inpatient Certification Medical Necessity: Significant Comorbidiites Make Outpatient Treatment Too Risky, Need for IV Antibiotics
[2019-07-05] MEDS: KETOROLAC TROMETHAMINE INJ/PF 30 MG/1 ML SDV IV PRN ×3 (00:23→22:42)
[2019-07-05] MEDS: VANCOMYCIN HCL 1,500 MG in DEXTROSE 5%-WATER 250 ML IV SCH ×4 (00:23→22:50)
[2019-07-05 05:12] LABS: ABSOLUTE EOSINOPHILS # (AUTO) 0.1 10^3/uL (0.0-0.6); ABSOLUTE LYMPHOCYTES (AUTO) 1.2 10^3/uL (0.5-4.7); ABSOLUTE MONOCYTES (AUTO) 0.6 10^3/uL (0.1-1.4); ABSOLUTE NEUT (AUTO) 5.5 10^3/uL (1.7-8.2); BASOPHILS % (AUTO) 0.3 % (0-2); EOSINOPHILS % (AUTO) 1.6 % (0-6); HEMATOCRIT 37.3 % (37.9-51.0); HEMOGLOBIN 12.8 g/dL (13.5-17.0); LYMPHOCYTES % (AUTO) 16.6 % (13-45); MEAN CORPUSCULAR HEMOGLOBIN 29.3 pg (27.0-33.4); MEAN CORPUSCULAR HGB CONC 34.3 g/dL (32.0-36.0); MEAN CORPUSCULAR VOLUME 85 fl (80-97); MONOCYTES % (AUTO) 8.1 % (3-13); PLATELET COUNT 142 10^3/uL (150-450); RED BLOOD COUNT 4.38 10^6/uL (4.35-5.55); RED CELL DISTRIBUTION WIDTH 13.9 % (11.5-14.0); SEGMENTED NEUTROPHILS % (AUTO) 73.4 % (42-78); TOTAL CELLS COUNTED % (AUTO) 100 %; WHITE BLOOD COUNT 7.5 10^3/uL (4.0-10.5)
[2019-07-05 05:33] LABS: ANION GAP 6 (5-19); BLOOD UREA NITROGEN 13 mg/dL (7-20); CALCIUM 8.5 mg/dL (8.4-10.2); CARBON DIOXIDE 29 mmol/L (22-30); CHLORIDE 101 mmol/L (98-107); GLUCOSE 121 mg/dL (75-110); POTASSIUM 3.6 mmol/L (3.6-5.0)
[2019-07-05] MEDS: PANTOPRAZOLE SODIUM 20 MG TABLET.DR PO SCH (05:58)
[2019-07-05] MEDS: GABAPENTIN 300 MG CAPSULE PO SCH ×3 (05:58→22:42)
[2019-07-05] MEDS: INSULIN REG, HUMAN 100 UNIT/ML 3 ML VIAL (PYX) SUBCUT SCH ×4 (07:58→22:42)
[2019-07-05] MEDS: LIPASE/PROTEASE/AMYLASE 1 CAP CAPSULE.DR PO SCH ×3 (09:28→16:54)
[2019-07-05] MEDS: GLIMEPIRIDE 4 MG TABLET PO SCH ×2 (09:28→17:01)
[2019-07-05] MEDS: DOCUSATE SODIUM 100 MG CAPSULE PO SCH (09:29)
[2019-07-05] MEDS: ENOXAPARIN SODIUM INJ 40 MG/0.4 ML DISP.SYRIN SUBCUT SCH (09:29)
[2019-07-05] MEDS: CEFEPIME 1 GM/D5W RTU 1 GM/50 ML RTUPB IV SCH ×2 (09:29→22:42)
--- NOTE | 2019-07-05 16:11 | PDOC PROGRESS REPORT ---
Subjective Progress Note for:: 07/05/19 Subjective:: Patient says he feels better today. The swelling and pain is less although seem to be coalescing around r foot Reason For Visit: CELLULITIS,TYPE 2 DM Physical Exam Vital Signs: Temp Pulse Resp BP Pulse Ox 98.6 F 84 20 156/89 H 91 L 07/05/19 12:00 07/05/19 12:00 07/05/19 12:00 07/05/19 12:00 07/05/19 12:00 Intake & Output 07/04/19 07/05/19 07/06/19 06:59 06:59 06:59 Intake Total 1850 1080 300 Output Total 100 Balance 1750 1080 300 Weight 96.3 kg 95.2 kg General appearance: PRESENT: no acute distress, well-developed, well-nourished Head exam: PRESENT: atraumatic, normocephalic Eye exam: PRESENT: conjunctiva pink, EOMI, PERRLA. ABSENT: scleral icterus Ear exam: PRESENT: normal external ear exam Neck exam: ABSENT: carotid bruit, JVD, lymphadenopathy, thyromegaly Respiratory exam: PRESENT: clear to auscultation arsenio. ABSENT: rales, rhonchi, wheezes Cardiovascular exam: PRESENT: RRR, +S1, +S2. ABSENT: diastolic murmur, rubs, systolic murmur Pulses: PRESENT: normal dorsalis pedis pul Vascular exam: PRESENT: normal capillary refill GI/Abdominal exam: PRESENT: normal bowel sounds, soft. ABSENT: distended, guarding, mass, organolmegaly, rebound, tenderness Rectal exam: PRESENT: deferred Extremities exam: PRESENT: pedal edema. ABSENT: calf tenderness, clubbing Musculoskeletal exam: PRESENT: other - R foot swelling, erythema and tenderness, improved, Swelling localizing to sole and top of foot Neurological exam: PRESENT: alert, awake, oriented to person, oriented to place, oriented to time, oriented to situation, CN II-XII grossly intact. ABSENT: motor sensory deficit Psychiatric exam: PRESENT: appropriate affect, normal mood. ABSENT: homicidal ideation, suicidal ideation Skin exam: PRESENT: dry, intact, warm. ABSENT: cyanosis, rash Results Laboratory Results: 07/05/19 04:49 07/05/19 04:49 07/05/19 07/05/19 04:49 04:49 WBC 7.5 RBC 4.38 Hgb 12.8 L Hct 37.3 L MCV 85 MCH 29.3 MCHC 34.3 RDW 13.9 Plt Count 142 L Seg Neutrophils % 73.4 Sodium 136.3 L Potassium 3.6 Chloride 101 Carbon Dioxide 29 Anion Gap 6 BUN 13 Creatinine 0.62 Est GFR ( Amer) > 60 Glucose 121 H Calcium 8.5 Impressions: Foot X-Ray 07/03/19 01:02 IMPRESSION: No acute osseous abnormality is seen within the right foot. Assessment and Plan - Diagnosis (1) Diabetic infection of right foot Is this a current diagnosis for this admission?: Yes Plan: Will consult General surgery for possible I and D Cont current antibiotics (2) Diabetes mellitus Qualifiers: Diabetes mellitus type: type 2 Diabetes mellitus complication detail: with unspecified neuropathy Is this a current diagnosis for this admission?: Yes (3) Cellulitis of right lower leg Is this a current diagnosis for this admission?: Yes Plan: See plan as above, ?I and D (4) Chronic pancreatitis Qualifiers: Pancreatitis type: alcohol induced Qualified Code(s): K86.0 - Alcohol- induced chronic pancreatitis Is this a current diagnosis for this admission?: Yes Plan: Patient says he has had a diagnosis of chronic pancreatitis for about 20 years. No evidence of acute flare - Time Time Spent with patient: 15-24 minutes Anticipated discharge: Home Within: within 72 hours
--- NOTE | 2019-07-05 21:02 | PDOC CONSULTATION ---
Consultation Consult Date: 07/05/19 Provider Consulted: ASHLYN HOLLY Consult reason:: Right foot cellulitis History of Present Illness Admission Date/PCP: 07/03/19 08:16 GARETH KNIGHT NP History of Present Illness: CHONG TIAN is a 53 year old male., who presents to the hospital with complaints of leg swelling and pain which started about 3 days ago. He denies any prior injury. He denies any fever. He has a history of type 2 diabetes mellitus that appears to be poorly controlled. He was noted to have a cellulitis in the emergency room and so he is been admitted for further manageme nt. Of the right foot is been done which is negative for osteomyelitis. Past Medical History Cardiac Medical History: Reports: None Pulmonary Medical History: Reports: None Neurological Medical History: Reports: None Endocrine Medical History: Reports: Diabetes Mellitus Type 2 Past Surgical History Past Surgical History: Reports: None, Orthopedic Surgery - right hip replacement Social History Lives with: Family Smoking Status: Current Every Day Smoker Cigarettes Packs Per Day: 1 Electronic Cigarette use?: No Frequency of Alcohol Use: None Drugs: None Family History Family History: Reviewed & Not Pertinent Parental Family History Reviewed: No Children Family History Reviewed: No Sibling(s) Family History Reviewed.: No Medication/Allergy Home Medications: Dapagliflozin Propanediol [Farxiga] 10 mg PO QAM 07/03/19 Gabapentin [Neurontin 300 mg Capsule] 600 mg PO Q8 07/03/19 Glimepiride [Amaryl 4 mg Tablet] 4 mg PO BID 07/03/19 Insulin Glargine,Hum.rec.anlog [Madina Dexter] 40 units SQ QAM 07/03/19 Lipase/Protease/Amylase [Zenpep Dr 40,000 Unit Capsule] 1 cap PO .SNACKS 07/03/19 Lipase/Protease/Amylase [Zenpep Dr 40,000 Unit Capsule] 1 cap PO MEALS 07/03/19 Omeprazole 20 mg PO DAILY 07/03/19 Allergies/Adverse Reactions: hydromorphone [From Dilaudid] Allergy (Verified 07/03/19 01:05) debra Allergy (Verified 07/03/19 01:05) Physical Exam Vital Signs: Temp Pulse Resp BP Pulse Ox 98.1 F 95 16 174/76 H 95 07/05/19 15:30 07/05/19 15:30 07/05/19 15:30 07/05/19 15:30 07/05/19 15:30 Intake & Output 07/04/19 07/05/19 07/06/19 06:59 06:59 06:59 Intake Total 1850 1080 570 Output Total 100 Balance 1750 1080 570 Weight 96.3 kg 95.2 kg General appearance: PRESENT: no acute distress, disheveled, well-developed, well-nourished Head exam: PRESENT: atraumatic, normocephalic Eye exam: PRESENT: EOMI Mouth exam: PRESENT: moist Teeth exam: PRESENT: poor dentation Neck exam: PRESENT: full ROM Respiratory exam: PRESENT: clear to auscultation arsenio Cardiovascular exam: PRESENT: RRR Pulses: PRESENT: +1 pedal pulses bilateral - Palpable R DP, NonPalpable R PT GI/Abdominal exam: PRESENT: soft Rectal exam: PRESENT: deferred Extremities exam: PRESENT: full ROM, +2 edema - RLE, other - RLE= right forefoot with ischemic dorsal skin, ischemic 2nd-3rd toe and partially ischemic great toe, no sensation, minimal toe ROM Musculoskeletal exam: PRESENT: full ROM Neurological exam: PRESENT: alert, awake, motor sensory deficit - right forefoot Skin exam: PRESENT: warm Results Laboratory Results: 07/05/19 04:49 07/05/19 04:49 07/05/19 07/05/19 04:49 04:49 WBC 7.5 RBC 4.38 Hgb 12.8 L Hct 37.3 L MCV 85 MCH 29.3 MCHC 34.3 RDW 13.9 Plt Count 142 L Seg Neutrophils % 73.4 Sodium 136.3 L Potassium 3.6 Chloride 101 Carbon Dioxide 29 Anion Gap 6 BUN 13 Creatinine 0.62 Est GFR ( Amer) > 60 Glucose 121 H Calcium 8.5 Impressions: Foot X-Ray 07/03/19 01:02 IMPRESSION: No acute osseous abnormality is seen within the right foot. Assessment & Plan - Diagnosis (2) Cellulitis of right lower leg Is this a current diagnosis for this admission?: Yes (3) Diabetic infection of right foot Is this a current diagnosis for this admission?: Yes - Plan Summary Plan Summary: Assessment: right forefoot skin ischemia right 2nd=3rd and great toe ischemic Type 2 diabetes Plan: MRI right foot w/ and w/o contrast to r/o the presence of osteomyelitis Any surgical decision will be taken once the MRI results are available and it will be discussed with the patient
--- NOTE | 2019-07-05 22:49 | RADIOLOGY REPORT (SQ) ---
EXAM DESCRIPTION: MR LOWER EXTREMITY WITHOUT THEN WITH IV CONTRAST COMPLETED DATE/TME: 07/05/2019 00:00 CLINICAL HISTORY: 53 years, Male, r/o right foot osteo, cellulitis right forefoot COMPARISON: Plain films 07/03/2019 TECHNIQUE: 335 Images stored on PACS. LIMITATIONS: None. FINDINGS: There is extensive motion artifact which degrades image quality. There is diffuse subcutaneous edema and soft tissue swelling of the foot. Superficial ulcer along the plantar aspect of the distal foot, near the base of the second digit. However, there is no underlying sinus tract formation or abscess. No underlying bone marrow edema or suspicious enhancement. No periosteal elevation or jagdish cortical destruction. IMPRESSION: Limited due to extensive motion however no convincing MR evidence for acute osteomyelitis. Findings suggestive of cellulitis of the foot. Soft tissue ulcer along the plantar aspect of the distal foot near the second digit copyright 2010 [id number]- All Rights Reserved
[2019-07-06] MEDS: VANCOMYCIN HCL 1,500 MG in DEXTROSE 5%-WATER 250 ML IV SCH ×3 (06:41→23:23)
[2019-07-06] MEDS: GABAPENTIN 300 MG CAPSULE PO SCH ×3 (06:41→21:46)
[2019-07-06] MEDS: PANTOPRAZOLE SODIUM 20 MG TABLET.DR PO SCH (06:41)
[2019-07-06] MEDS: KETOROLAC TROMETHAMINE INJ/PF 30 MG/1 ML SDV IV PRN ×2 (06:44→14:06)
[2019-07-06 07:01] LABS: VANCOMYCIN,TROUGH 12.9 ug/mL (5.0-20.0)
[2019-07-06] MEDS: INSULIN REG, HUMAN 100 UNIT/ML 3 ML VIAL (PYX) SUBCUT SCH ×4 (08:13→21:37)
[2019-07-06] MEDS: LIPASE/PROTEASE/AMYLASE 1 CAP CAPSULE.DR PO SCH ×3 (08:15→18:41)
--- NOTE | 2019-07-06 09:59 | PDOC PROGRESS REPORT ---
Subjective Progress Note for:: 07/06/19 Subjective:: Patient seen by surgery. Plan is for the OR for surgical intervention today. Reason For Visit: CELLULITIS,TYPE 2 DM Physical Exam Vital Signs: Temp Pulse Resp BP Pulse Ox 99.3 F 90 20 173/87 H 93 07/06/19 07:34 07/06/19 07:34 07/06/19 07:34 07/06/19 07:34 07/06/19 07:34 Intake & Output 07/05/19 07/06/19 07/07/19 06:59 06:59 06:59 Intake Total 1080 1510 Balance 1080 1510 Weight 95.2 kg 94 kg General appearance: PRESENT: no acute distress, well-developed, well-nourished Head exam: PRESENT: atraumatic, normocephalic Eye exam: PRESENT: conjunctiva pink, EOMI, PERRLA. ABSENT: scleral icterus Neck exam: ABSENT: carotid bruit, JVD, lymphadenopathy, thyromegaly Respiratory exam: PRESENT: clear to auscultation arsenio. ABSENT: rales, rhonchi, wheezes Cardiovascular exam: PRESENT: RRR. ABSENT: diastolic murmur, rubs, systolic murmur Pulses: PRESENT: normal dorsalis pedis pul Vascular exam: PRESENT: normal capillary refill GI/Abdominal exam: PRESENT: normal bowel sounds, soft. ABSENT: distended, gua rding, mass, organolmegaly, rebound, tenderness Rectal exam: PRESENT: deferred Extremities exam: PRESENT: full ROM. ABSENT: calf tenderness, clubbing, pedal edema Musculoskeletal exam: PRESENT: other - Erythema right foot with first and second toe swelling with discharge and also in the plantar aspect of right foot distall y Neurological exam: PRESENT: alert, awake, oriented to person, oriented to place, oriented to time, oriented to situation, CN II-XII grossly intact. ABSENT: motor sensory deficit Psychiatric exam: PRESENT: appropriate affect, normal mood. ABSENT: homicidal ideation, suicidal ideation Skin exam: PRESENT: dry, intact, warm. ABSENT: cyanosis, rash Results Laboratory Results: 07/05/19 04:49 07/05/19 04:49 Impressions: Foot X-Ray 07/03/19 01:02 IMPRESSION: No acute osseous abnormality is seen within the right foot. Lower Extremity MRI 07/05/19 00:00 IMPRESSION: Limited due to extensive motion however no convincing MR evidence for acute osteomyelitis. Findings suggestive of cellulitis of the foot. Soft tissue ulcer along the plantar aspect of the distal foot near the second digit copyright 2011 [employer]- All Rights Reserved Assessment and Plan - Diagnosis (1) Diabetic infection of right foot Is this a current diagnosis for this admission?: Yes Plan: Patient has been seen by Dr. [place], plan is for OR today for I&D Cont current antibiotics (2) Diabetes mellitus Qualifiers: Diabetes mellitus type: type 2 Diabetes mellitus complication detail: with unspecified neuropathy Is this a current diagnosis for this admission?: Yes Plan: Continue to adjust insulin as needed (3) Cellulitis of right lower leg Is this a current diagnosis for this admission?: Yes (4) Chronic pancreatitis Qualifiers: Pancreatitis type: alcohol induced Qualified Code(s): K86.0 - Alcohol- induced chronic pancreatitis Is this a current diagnosis for this admission?: Yes Plan: Patient says he has had a diagnosis of chronic pancreatitis for about 20 years. No evidence of acute flare - Plan Summary Summary: MRI done noted. No specific signs of osteomyelitis with confirmation of cellulitis - Time Time Spent with patient: 15-24 minutes Anticipated discharge: Home Within: within 72 hours
--- NOTE | 2019-07-06 10:25 | RADIOLOGY REPORT (SQ) ---
EXAM DESCRIPTION: CHEST 2 VIEWS COMPLETED DATE/TIME: 07/05/2019 9:21 pm REASON FOR STUDY: Cough, wheezing COMPARISON: 11/17/2018 NUMBER OF VIEWS: Two view. TECHNIQUE: Frontal and lateral radiographic views of the chest acquired. LIMITATIONS: None. FINDINGS: LUNGS AND PLEURA: Peribronchial cuffing and interstitial changes. No consolidation, effus ion, or pneumothorax. MEDIASTINUM AND HILAR STRUCTURES: Stable. HEART AND VASCULAR STRUCTURES: Stable. BONES: No acute findings. HARDWARE: None in the chest. OTHER: No other significant finding. IMPRESSION: REACTIVE AIRWAY DISEASE VERSUS VIRAL SYNDROME. NO CONSOLIDATION. TECHNICAL DOCUMENTATION: JOB ID: [id number] [id number] 2010 [employer]- All Rights Reserved Reading location - IP/workstation name: [email or web address]
--- NOTE | 2019-07-06 11:10 | PDOC PROGRESS REPORT ---
Subjective Progress Note for:: 07/06/19 Subjective:: Foot infection Reason For Visit: CELLULITIS,TYPE 2 DM Physical Exam Vital Signs: Temp Pulse Resp BP Pulse Ox 99.3 F 90 20 173/87 H 93 07/06/19 07:34 07/06/19 07:34 07/06/19 07:34 07/06/19 07:34 07/06/19 07:34 Intake & Output 07/05/19 07/06/19 07/07/19 06:59 06:59 06:59 Intake Total 1080 1510 Balance 1080 1510 Weight 95.2 kg 94 kg General appearance: PRESENT: no acute distress Head exam: PRESENT: normocephalic Eye exam: PRESENT: EOMI Ear exam: PRESENT: normal external ear exam Mouth exam: PRESENT: moist Teeth exam: PRESENT: poor dentation Neck exam: PRESENT: full ROM Respiratory exam: PRESENT: clear to auscultation arsenio Cardiovascular exam: PRESENT: RRR Pulses: PRESENT: +1 pedal pulses bilateral, +2 pedal pulses bilateral Breast: PRESENT: Normal GI/Abdominal exam: PRESENT: soft Rectal exam: PRESENT: deferred Extremities exam: PRESENT: calf tenderness, +1 edema, other - The right forefoot has 1 to 2+ dorsal pedis and posterior tibial pulse however there is obvious ski n necrosis and ecchymosis with gangrenous changes of the second third and fourth toes extending to the proximal phalanx. There is ecchymosis along the anterior aspect of the foot and posteriorly to the midfoot there is mild duskiness of the skin. Neurological exam: PRESENT: alert, oriented to person, oriented to place Psychiatric exam: PRESENT: appropriate affect Skin exam: PRESENT: dry Results Laboratory Results: 07/05/19 04:49 07/05/19 04:49 Impressions: Foot X-Ray 07/03/19 01:02 IMPRESSION: No acute osseous abnormality is seen within the right foot. Chest X-Ray 07/05/19 00:00 IMPRESSION: REACTIVE AIRWAY DISEASE VERSUS VIRAL SYNDROME. NO CONSOLIDATION. Lower Extremity MRI 07/05/19 00:00 IMPRESSION: Limited due to extensive motion however no convincing MR evidence for acute osteomyelitis. Findings suggestive of cellulitis of the foot. Soft tissue ulcer along the plantar aspect of the distal foot near the second digit copyright 2011 [employer]- All Rights Reserved Assessment & Plan - Time Time Spent with patient: 35 or more minutes - Plan Summary Plan Summary: Impression is right forefoot infection and necrotic second third and fourth toes of the right foot no evidence of osteomyelitis on MRI scan. Recommendation is a right transmetatarsal foot amputation however I after long discussion with the patient I explained that depending on what the condition of the musculature of the foot is that he may need a below the knee amputation. He understands these risks and benefits and agrees to proceed.
[2019-07-06] MEDS: GLIMEPIRIDE 4 MG TABLET PO SCH ×2 (12:39→18:41)
[2019-07-06] MEDS: CEFEPIME 1 GM/D5W RTU 1 GM/50 ML RTUPB IV SCH ×2 (12:43→21:34)
[2019-07-06] MEDS ORDERED: LIDOCAINE 1%/EPINEPHRINE INJ 20 ML VIAL ONE (15:31)
[2019-07-06] MEDS ORDERED: BUPIVACAINE HCL 0.5%-EPI 1:200000 INJ/PF 30 ML VIAL ONE (15:31)
[2019-07-06] MEDS ORDERED: LIDOCAINE 1% INJ-PF (10 MG/ML) 30 ML SDV ONE (15:31)
[2019-07-06] MEDS ORDERED: METOCLOPRAMIDE HCL INJ/PF 10 MG/2 ML SDV ONE (15:42)
[2019-07-06] MEDS ORDERED: IPRATROPIUM/ALBUTEROL 0.5-2.5 MG/3 ML AMPUL NEB ONE (15:42)
[2019-07-06] MEDS ORDERED: FAMOTIDINE INJ/PF 20 MG/2 ML SDV IV ONE (15:42)
[2019-07-06] MEDS ORDERED: FENTANYL CITRATE INJ/PF 100 MCG/2 ML AMPUL ONE (15:45)
[2019-07-06] MEDS ORDERED: MIDAZOLAM 2 MG/2 ML INJ ONE (15:45)
[2019-07-06] MEDS ORDERED: ONDANSETRON HCL INJ/PF 4 MG/2 ML SDV ONE (15:45)
[2019-07-06] MEDS ORDERED: PROPOFOL INJ 200 MG/20 ML VIAL IV ONE (15:45)
[2019-07-06] MEDS ORDERED: PROMETHAZINE HCL INJ 25 MG/1 ML VIAL IV PRN (16:29)
[2019-07-06] MEDS ORDERED: LIDOCAINE 1% INJ-PF (10 MG/ML) 30 ML SDV INJ ONE (16:29)
[2019-07-06] MEDS ORDERED: DIPHENHYDRAMINE HCL 50 MG/ML VIAL IV PRN (16:29)
[2019-07-06] MEDS ORDERED: FENTANYL CITRATE INJ/PF 100 MCG/2 ML AMPUL IV PRN ×3 (16:29)
[2019-07-06] MEDS ORDERED: MEPERIDINE HCL/PF INJ 25 MG/1 ML DISP.SYRIN IV PRN (16:29)
--- NOTE | 2019-07-06 17:31 | Operative Report ---
Nonrecallable Operative Report DATE OF SURGERY: 07/06/19 PREOPERATIVE DIAGNOSIS: right diabetic foot infection POSTOPERATIVE DIAGNOSIS: right diabetic foot infection OPERATION: right transmetatarsal amputation SURGEON: ANNETTA CARTER ANESTHESIA: Moderate Sedation TISSUE REMOVED OR ALTERED: 1-5 toes COMPLICATIONS: none ESTIMATED BLOOD LOSS: 50cc INTRAOPERATIVE FINDINGS: see note PROCEDURE: Patient was brought to the operating awake alert in stable condition placed after table supine position and given IV sedation the right foot was prepped and draped in usual sterile manner for the procedure After appropriate timeout and site verification the procedure commenced. Using a marking pen we marked a racquet type incision just proximal to the web spaces on the forefoot around #1 through 5 toe. Using a 15 blade an incision was made proximal to the webspace just over the metatarsal heads and it continued our dissection down with Bovie cautery through subcutaneous tissue through the capsules of the distal tarsals head joints with Bovie cautery. Posteriorly became through the subcutaneous tissue and the plantar fascia with Bovie cautery. The digital arteries were all controlled with a [id number] placed 2-0 Vicryl suture. The specimen was removed. We then using the periosteal elevator was raised the periosteum off the metatarsals 1 through 5 with the elevator and then came across the tarsals mid shaft 1 through 5 with the a bone cutter. The posterior flap with adequate length and it came up easily and rested anteriorly. We then smoothed the bone edges with a bone rongeur. We then reapproximated the deep tissue with interrupted 2-0 Vicryl. After irrigating the wound. I placed a Marvin-Olguin drain at the base the wound brought out through each side of the foot medially and laterally. We then loosely approximated the skin with interrupted placed 2-0 nylon suture. Sterile dressing which was applied completed the procedure. The patient was then transferred recovery in stable condition. Estimated blood loss was 50 cc sponge needle counts correct x2 the patient tolerated the procedure well.
[2019-07-06] MEDS: ENOXAPARIN SODIUM INJ 40 MG/0.4 ML DISP.SYRIN SUBCUT SCH (18:34)
[2019-07-06] MEDS: DOCUSATE SODIUM 100 MG CAPSULE PO SCH (18:36)
[2019-07-07] MEDS: PANTOPRAZOLE SODIUM 20 MG TABLET.DR PO SCH (05:58)
[2019-07-07] MEDS: VANCOMYCIN HCL 1,500 MG in DEXTROSE 5%-WATER 250 ML IV SCH ×3 (05:58→21:02)
[2019-07-07] MEDS: GABAPENTIN 300 MG CAPSULE PO SCH ×3 (05:58→21:02)
[2019-07-07 06:10] LABS: ABSOLUTE EOSINOPHILS # (AUTO) 0.2 10^3/uL (0.0-0.6); ABSOLUTE LYMPHOCYTES (AUTO) 0.7 10^3/uL (0.5-4.7); ABSOLUTE MONOCYTES (AUTO) 0.8 10^3/uL (0.1-1.4); ABSOLUTE NEUT (AUTO) 5.1 10^3/uL (1.7-8.2); BASOPHILS % (AUTO) 0.3 % (0-2); EOSINOPHILS % (AUTO) 2.6 % (0-6); HEMATOCRIT 35.9 % (37.9-51.0); HEMOGLOBIN 12.4 g/dL (13.5-17.0); LYMPHOCYTES % (AUTO) 10.1 % (13-45); MEAN CORPUSCULAR HEMOGLOBIN 29.3 pg (27.0-33.4); MEAN CORPUSCULAR HGB CONC 34.6 g/dL (32.0-36.0); MEAN CORPUSCULAR VOLUME 85 fl (80-97); MONOCYTES % (AUTO) 11.3 % (3-13); PLATELET COUNT 205 10^3/uL (150-450); RED BLOOD COUNT 4.24 10^6/uL (4.35-5.55); RED CELL DISTRIBUTION WIDTH 14.1 % (11.5-14.0); SEGMENTED NEUTROPHILS % (AUTO) 75.7 % (42-78); TOTAL CELLS COUNTED % (AUTO) 100 %; WHITE BLOOD COUNT 6.7 10^3/uL (4.0-10.5)
[2019-07-07 06:35] LABS: BLOOD UREA NITROGEN 12 mg/dL (7-20); CALCIUM 8.3 mg/dL (8.4-10.2); CARBON DIOXIDE 31 mmol/L (22-30); CHLORIDE 100 mmol/L (98-107); GLUCOSE 273 mg/dL (75-110); POTASSIUM 4.5 mmol/L (3.6-5.0)
[2019-07-07 06:47] LABS: ANION GAP 3 (5-19)
[2019-07-07] MEDS: INSULIN REG, HUMAN 100 UNIT/ML 3 ML VIAL (PYX) SUBCUT SCH ×4 (08:12→20:59)
[2019-07-07] MEDS: LIPASE/PROTEASE/AMYLASE 1 CAP CAPSULE.DR PO SCH ×3 (08:12→18:18)
[2019-07-07] MEDS: ENOXAPARIN SODIUM INJ 40 MG/0.4 ML DISP.SYRIN SUBCUT SCH (10:22)
[2019-07-07] MEDS: GLIMEPIRIDE 4 MG TABLET PO SCH ×2 (10:22→18:17)
[2019-07-07] MEDS: CEFEPIME 1 GM/D5W RTU 1 GM/50 ML RTUPB IV SCH ×2 (10:22→21:02)
[2019-07-07] MEDS: DOCUSATE SODIUM 100 MG CAPSULE PO SCH (10:22)
[2019-07-07] MEDS: KETOROLAC TROMETHAMINE INJ/PF 30 MG/1 ML SDV IV PRN ×2 (10:29→21:04)
--- NOTE | 2019-07-07 12:17 | PDOC PROGRESS REPORT ---
Subjective Progress Note for:: 07/07/19 Subjective:: Repeat but arousable, comfortable, no complaints Reason For Visit: CELLULITIS,TYPE 2 DM Physical Exam Vital Signs: Temp Pulse Resp BP Pulse Ox 99.1 F 93 20 174/85 H 92 07/07/19 07:33 07/07/19 07:33 07/07/19 07:33 07/07/19 07:33 07/07/19 07:33 Intake & Output 07/06/19 07/07/19 07/08/19 06:59 06:59 06:59 Intake Total 1510 1890 Output Total 475 Balance 1510 1415 Weight 94 kg 94.5 kg General appearance: PRESENT: no acute distress, obese, other - Sleepy but arousable, appropriate, follows commands appropriately Respiratory exam: PRESENT: clear to auscultation arsenio Cardiovascular exam: PRESENT: RRR GI/Abdominal exam: PRESENT: soft Musculoskeletal exam: PRESENT: other - Right lower extremity = good ankle and knee range of motion, foot covered with dressings clean, dry, and intact, no odor Results Laboratory Results: 07/07/19 05:02 07/07/19 05:02 07/07/19 07/07/19 05:02 05:02 WBC 6.7 RBC 4.24 L Hgb 12.4 L Hct 35.9 L MCV 85 MCH 29.3 MCHC 34.6 RDW 14.1 H Plt Count 205 Seg Neutrophils % 75.7 Sodium 134.1 L Potassium 4.5 Chloride 100 Carbon Dioxide 31 H Anion Gap 3 L BUN 12 Creatinine 0.69 Est GFR ( Amer) > 60 Glucose 273 H Calcium 8.3 L Impressions: Foot X-Ray 07/03/19 01:02 IMPRESSION: No acute osseous abnormality is seen within the right foot. Chest X-Ray 07/05/19 00:00 IMPRESSION: REACTIVE AIRWAY DISEASE VERSUS VIRAL SYNDROME. NO CONSOLIDATION. Lower Extremity MRI 07/05/19 00:00 IMPRESSION: Limited due to extensive motion however no convincing MR evidence for acute osteomyelitis. Findings suggestive of cellulitis of the foot. Soft tissue ulcer along the plantar aspect of the distal foot near the second digit copyright 2010 [employer]- All Rights Reserved Assessment & Plan - Diagnosis (2) Cellulitis of right lower leg Is this a current diagnosis for this admission?: Yes (3) Diabetic infection of right foot Is this a current diagnosis for this admission?: Yes - Time Time Spent with patient: 25-34 minutes - Plan Summary Plan Summary: Assessment: Postoperative day #1 following right transmetatarsal amputation Vital signs stable, patient afebrile CBC within normal limits Physical exam shows right foot dressings clean, dry, and intact Good range of motion of the right knee and ankle Concerning continuous elevation of fasting blood sugar ranging from 312 to 241 Elevated hemoglobin A1c 8.1, Both are concerning because they can both compromise surgical healing and use postoperative surgical wound infection Plan: Continue IV antibiotics Continue bed rest of the right upper extremity elevation I recommended to tightly control the patient fasting blood sugar to level below 150 to allow optimal wound healing and prevention of surgical wound infection Right foot wound will be unveiled tomorrow
[2019-07-07 14:21] LABS: BLOOD UREA NITROGEN 11 mg/dL (7-20); CALCIUM 8.4 mg/dL (8.4-10.2); CHLORIDE 99 mmol/L (98-107); GLUCOSE 178 mg/dL (75-110); POTASSIUM 4.2 mmol/L (3.6-5.0)
[2019-07-07 14:27] LABS: CARBON DIOXIDE 31 mmol/L (22-30)
[2019-07-07 14:32] LABS: ANION GAP 4 (5-19)
--- NOTE | 2019-07-07 16:27 | PDOC PROGRESS REPORT ---
Subjective Progress Note for:: 07/07/19 Subjective:: Status post metatarsal amputation on July 06. He says he does feel better. Swelling and redness is improved Reason For Visit: CELLULITIS,TYPE 2 DM Physical Exam Vital Signs: Temp Pulse Resp BP Pulse Ox 99.0 F 93 20 178/84 H 90 L 07/07/19 11:08 07/07/19 11:08 07/07/19 11:08 07/07/19 11:08 07/07/19 11:08 Intake & Output 07/06/19 07/07/19 07/08/19 06:59 06:59 06:59 Intake Total 1510 1890 490 Output Total 475 700 Balance 1510 1415 -210 Weight 94 kg 94.5 kg General appearance: PRESENT: no acute distress, well-developed, well-nourished Head exam: PRESENT: atraumatic, normocephalic Eye exam: PRESENT: conjunctiva pink, EOMI, PERRLA. ABSENT: scleral icterus Neck exam: ABSENT: carotid bruit, JVD, lymphadenopathy, thyromegaly Respiratory exam: PRESENT: clear to auscultation arsenio. ABSENT: rales, rhonchi, wheezes Cardiovascular exam: PRESENT: RRR. ABSENT: diastolic murmur, rubs, systolic murmur Vascular exam: PRESENT: normal capillary refill GI/Abdominal exam: PRESENT: normal bowel sounds, soft. ABSENT: distended, guar ding, mass, organolmegaly, rebound, tenderness Rectal exam: PRESENT: deferred Extremities exam: PRESENT: full ROM. ABSENT: calf tenderness, clubbing, pedal edema Musculoskeletal exam: PRESENT: other - Right transmetatarsal amputation, dressing intact Neurological exam: PRESENT: alert, awake, oriented to person, oriented to place, oriented to time, oriented to situation, CN II-XII grossly intact. ABSENT: motor sensory deficit Psychiatric exam: PRESENT: appropriate affect, normal mood. ABSENT: homicidal ideation, suicidal ideation Skin exam: PRESENT: dry, intact, warm. ABSENT: cyanosis, rash Results Laboratory Results: 07/07/19 05:02 07/07/19 13:40 07/07/19 07/07/19 07/07/19 05:02 05:02 13:40 WBC 6.7 RBC 4.24 L Hgb 12.4 L Hct 35.9 L MCV 85 MCH 29.3 MCHC 34.6 RDW 14.1 H Plt Count 205 Seg Neutrophils % 75.7 Sodium 134.1 L 134.3 L Potassium 4.5 4.2 Chloride 100 99 Carbon Dioxide 31 H 31 H Anion Gap 3 L 4 L BUN 12 11 Creatinine 0.69 0.62 Est GFR ( Amer) > 60 > 60 Glucose 273 H 178 H Calcium 8.3 L 8.4 Impressions: Foot X-Ray 07/03/19 01:02 IMPRESSION: No acute osseous abnormality is seen within the right foot. Chest X-Ray 07/05/19 00:00 IMPRESSION: REACTIVE AIRWAY DISEASE VERSUS VIRAL SYNDROME. NO CONSOLIDATION. Lower Extremity MRI 07/05/19 00:00 IMPRESSION: Limited due to extensive motion however no convincing MR evidence for acute osteomyelitis. Findings suggestive of cellulitis of the foot. Soft tissue ulcer along the plantar aspect of the distal foot near the second digit copyright 2011 [employer]- All Rights Reserved Assessment and Plan - Diagnosis (1) Diabetic infection of right foot Is this a current diagnosis for this admission?: Yes (2) Diabetes mellitus Qualifiers: Diabetes mellitus type: type 2 Diabetes mellitus complication detail: with unspecified neuropathy Is this a current diagnosis for this admission?: Yes Plan: Poorly controlled, exacerbated by acute infection. Hemoglobin A1c is 8. His blood sugar has been fluctuating especially because patient was n.p.o. for some periods yesterday and was postop but have added Lantus to his regimen, 8 units twice daily as his Toujeo has been on hold. (3) Cellulitis of right lower leg Is this a current diagnosis for this admission?: Yes Plan: Blood cultures have been negative x4 days. Intraoperative cultures are currently still pending (4) Chronic pancreatitis Qualifiers: Pancreatitis type: alcohol induced Qualified Code(s): K86.0 - Alcohol- induced chronic pancreatitis Is this a current diagnosis for this admission?: Yes Plan: Continue pancreatic enzymes (5) Ischemic ulcer of toe of right foot Qualifiers: Non-pressure ulcer stage: unspecified non-pressure ulcer stage Qualified Code(s): L97.519 - Non-pressure chronic ulcer of other part of right foot with unspecified severity Is this a current diagnosis for this admission?: Yes Plan: Status post transmetatarsal amputation - Plan Summary Summary: MRI done noted. No specific signs of osteomyelitis with confirmation of celluli tis
[2019-07-07] MEDS: INSULIN GLARGINE,HUM.REC.ANLOG 1,000 UNIT/10 ML VIAL SUBCUT SCH (21:20)
[2019-07-08] MEDS: VANCOMYCIN HCL 1,500 MG in DEXTROSE 5%-WATER 250 ML IV SCH ×3 (06:12→22:30)
[2019-07-08] MEDS: GABAPENTIN 300 MG CAPSULE PO SCH ×3 (06:13→22:31)
[2019-07-08] MEDS: KETOROLAC TROMETHAMINE INJ/PF 30 MG/1 ML SDV IV PRN ×2 (06:14→15:21)
[2019-07-08] MEDS: PANTOPRAZOLE SODIUM 20 MG TABLET.DR PO SCH (06:14)
[2019-07-08 06:30] LABS: ABSOLUTE EOSINOPHILS # (AUTO) 0.2 10^3/uL (0.0-0.6); ABSOLUTE LYMPHOCYTES (AUTO) 1.1 10^3/uL (0.5-4.7); ABSOLUTE MONOCYTES (AUTO) 0.9 10^3/uL (0.1-1.4); ABSOLUTE NEUT (AUTO) 4.8 10^3/uL (1.7-8.2); BASOPHILS % (AUTO) 0.5 % (0-2); EOSINOPHILS % (AUTO) 3.4 % (0-6); HEMATOCRIT 36.1 % (37.9-51.0); HEMOGLOBIN 12.5 g/dL (13.5-17.0); LYMPHOCYTES % (AUTO) 15.4 % (13-45); MEAN CORPUSCULAR HEMOGLOBIN 29.4 pg (27.0-33.4); MEAN CORPUSCULAR HGB CONC 34.7 g/dL (32.0-36.0); MEAN CORPUSCULAR VOLUME 85 fl (80-97); MONOCYTES % (AUTO) 13.3 % (3-13); PLATELET COUNT 213 10^3/uL (150-450); RED BLOOD COUNT 4.26 10^6/uL (4.35-5.55); RED CELL DISTRIBUTION WIDTH 13.8 % (11.5-14.0); SEGMENTED NEUTROPHILS % (AUTO) 67.4 % (42-78); TOTAL CELLS COUNTED % (AUTO) 100 %; WHITE BLOOD COUNT 7.1 10^3/uL (4.0-10.5)
[2019-07-08] MEDS: INSULIN REG, HUMAN 100 UNIT/ML 3 ML VIAL (PYX) SUBCUT SCH ×4 (07:17→22:32)
[2019-07-08] MEDS: LIPASE/PROTEASE/AMYLASE 1 CAP CAPSULE.DR PO SCH ×3 (07:19→17:36)
[2019-07-08] MEDS: GLIMEPIRIDE 4 MG TABLET PO SCH ×2 (09:54→17:37)
[2019-07-08] MEDS: DOCUSATE SODIUM 100 MG CAPSULE PO SCH (09:54)
[2019-07-08] MEDS: CEFEPIME 1 GM/D5W RTU 1 GM/50 ML RTUPB IV SCH ×2 (09:54→22:31)
[2019-07-08] MEDS: INSULIN GLARGINE,HUM.REC.ANLOG 1,000 UNIT/10 ML VIAL SUBCUT SCH ×2 (09:54→22:29)
[2019-07-08] MEDS: ENOXAPARIN SODIUM INJ 40 MG/0.4 ML DISP.SYRIN SUBCUT SCH (09:55)
--- NOTE | 2019-07-08 13:25 | PDOC PROGRESS REPORT ---
Subjective Progress Note for:: 07/08/19 Subjective:: Patient comfortable, complains of occasional right foot phantom pain Reason For Visit: CELLULITIS,TYPE 2 DM Physical Exam Vital Signs: Temp Pulse Resp BP Pulse Ox 98.5 F 84 18 161/86 H 94 07/08/19 11:25 07/08/19 11:25 07/08/19 11:25 07/08/19 11:25 07/08/19 11:25 Intake & Output 07/07/19 07/08/19 07/09/19 06:59 06:59 06:59 Intake Total 1890 1090 750 Output Total 475 2150 400 Balance 1415 -1060 350 Weight 94.5 kg 97.8 kg General appearance: PRESENT: no acute distress Extremities exam: PRESENT: other - Right foot = TMA incision clean, dry, intact, sutures present, erythema of the dorsal flap with blanching, no odor Results Laboratory Results: 07/08/19 05:53 07/07/19 13:40 07/07/19 07/08/19 13:40 05:53 WBC 7.1 RBC 4.26 L Hgb 12.5 L Hct 36.1 L MCV 85 MCH 29.4 MCHC 34.7 RDW 13.8 Plt Count 213 Seg Neutrophils % 67.4 Sodium 134.3 L Potassium 4.2 Chloride 99 Carbon Dioxide 31 H Anion Gap 4 L BUN 11 Creatinine 0.62 Est GFR ( Amer) > 60 Glucose 178 H Calcium 8.4 07/03/19 06:44 Blood Blood Culture - Final NO GROWTH IN 5 DAYS 07/03/19 04:32 Blood Blood Culture - Final NO GROWTH IN 5 DAYS 07/03/19 01:25 Blood Blood Culture - Final NO GROWTH IN 5 DAYS Impressions: Foot X-Ray 07/03/19 01:02 IMPRESSION: No acute osseous abnormality is seen within the right foot. Chest X-Ray 07/05/19 00:00 IMPRESSION: REACTIVE AIRWAY DISEASE VERSUS VIRAL SYNDROME. NO CONSOLIDATION. Lower Extremity MRI 07/05/19 00:00 IMPRESSION: Limited due to extensive motion however no convincing MR evidence for acute osteomyelitis. Findings suggestive of cellulitis of the foot. Soft tissue ulcer along the plantar aspect of the distal foot near the second digit copyright 2010 [employer]- All Rights Reserved Assessment & Plan - Diagnosis (1) Ischemic ulcer of toe of right foot Qualifiers: Non-pressure ulcer stage: unspecified non-pressure ulcer stage Qualified Code(s): L97.519 - Non-pressure chronic ulcer of other part of right foot with unspecified severity Is this a current diagnosis for this admission?: Yes (2) Cellulitis of right lower leg Is this a current diagnosis for this admission?: Yes (3) Diabetic infection of right foot Is this a current diagnosis for this admission?: Yes - Time Time Spent with patient: 15-24 minutes - Plan Summary Plan Summary: Assessment: Postoperative day #2 following right TMA for gangrenous toes Vital signs stable patient afebrile Physical exam of the wound shows a viable plantar and dorsal flaps of the TMA Plan: Continue bed rest and right lower extremity elevation Physical therapy on consult for crutches or walker
--- NOTE | 2019-07-08 14:52 | PDOC PROGRESS REPORT ---
Subjective Progress Note for:: 07/08/19 Subjective:: Status post metatarsal amputation on July 06. He says he does feel better. Swelling and redness is improved And has been on antibiotics since admission on July 03. Pancultures negative. I think it may be reasonable to complete a 7-day course of vancomycin and then discontinue especially if Intra-Op cultures yielded no organisms Reason For Visit: CELLULITIS,TYPE 2 DM Physical Exam Vital Signs: Temp Pulse Resp BP Pulse Ox 98.5 F 84 18 161/86 H 94 07/08/19 11:25 07/08/19 11:25 07/08/19 11:25 07/08/19 11:25 07/08/19 11:25 Intake & Output 07/07/19 07/08/19 07/09/19 06:59 06:59 06:59 Intake Total 1890 1090 750 Output Total 475 2150 400 Balance 1415 -1060 350 Weight 94.5 kg 97.8 kg General appearance: PRESENT: no acute distress, well-developed Head exam: PRESENT: atraumatic, normocephalic Eye exam: PRESENT: PERRLA. ABSENT: scleral icterus Mouth exam: PRESENT: moist, tongue midline Neck exam: ABSENT: carotid bruit, JVD, lymphadenopathy, thyromegaly Respiratory exam: PRESENT: clear to auscultation arsenio. ABSENT: rales, rhonchi, wheezes Cardiovascular exam: PRESENT: RRR, +S1, +S2. ABSENT: diastolic murmur, rubs, systolic murmur Vascular exam: PRESENT: normal capillary refill GI/Abdominal exam: PRESENT: normal bowel sounds, soft. ABSENT: distended, guarding, mass, organolmegaly, rebound, tenderness Rectal exam: PRESENT: deferred Extremities exam: PRESENT: full ROM, +1 edema, other - erythema and cellulitis RLE resolving TMA R foot, apparently healing flap as per Surgery. ABSENT: calf tenderness, clubbing, pedal edema Neurological exam: PRESENT: alert, awake, oriented to person, oriented to place, oriented to time, oriented to situation, CN II-XII grossly intact. ABSENT: motor sensory deficit Psychiatric exam: PRESENT: appropriate affect, normal mood. ABSENT: homicidal i deation, suicidal ideation Skin exam: PRESENT: dry, erythema - RLE, rash, warm. ABSENT: cyanosis Results Laboratory Results: 07/08/19 05:53 07/07/19 13:40 07/08/19 05:53 WBC 7.1 RBC 4.26 L Hgb 12.5 L Hct 36.1 L MCV 85 MCH 29.4 MCHC 34.7 RDW 13.8 Plt Count 213 Seg Neutrophils % 67.4 07/03/19 06:44 Blood Blood Culture - Final NO GROWTH IN 5 DAYS 07/03/19 04:32 Blood Blood Culture - Final NO GROWTH IN 5 DAYS 07/03/19 01:25 Blood Blood Culture - Final NO GROWTH IN 5 DAYS Impressions: Foot X-Ray 07/03/19 01:02 IMPRESSION: No acute osseous abnormality is seen within the right foot. Chest X-Ray 07/05/19 00:00 IMPRESSION: REACTIVE AIRWAY DISEASE VERSUS VIRAL SYNDROME. NO CONSOLIDATION. Lower Extremity MRI 07/05/19 00:00 IMPRESSION: Limited due to extensive motion however no convincing MR evidence for acute osteomyelitis. Findings suggestive of cellulitis of the foot. Soft tissue ulcer along the plantar aspect of the distal foot near the second digit copyright 2011 [employer]- All Rights Reserved Assessment and Plan - Diagnosis (1) Diabetic infection of right foot Is this a current diagnosis for this admission?: Yes Plan: Cont current antibiotics and plan to de-escalate in another day or so (2) Diabetes mellitus Qualifiers: Diabetes mellitus type: type 2 Diabetes mellitus complication detail: with unspecified neuropathy Is this a current diagnosis for this admission?: Yes Plan: Continue to adjust insulin to maintain blood sugar control (3) Cellulitis of right lower leg Is this a current diagnosis for this admission?: Yes Plan: Blood cultures have been negative x5 days. follow-up on intraoperative cultures if available (4) Chronic pancreatitis Qualifiers: Pancreatitis type: alcohol induced Qualified Code(s): K86.0 - Alcohol- induced chronic pancreatitis Is this a current diagnosis for this admission?: Yes Plan: Continue pancreatic enzymes (5) Ischemic ulcer of toe of right foot Qualifiers: Non-pressure ulcer stage: unspecified non-pressure ulcer stage Qualified Code(s): L97.519 - Non-pressure chronic ulcer of other part of right foot with unspecified severity Is this a current diagnosis for this admission?: Yes Plan: Status post transmetatarsal amputation Further plans as per surgery - Plan Summary Summary: MRI done noted. No specific signs of osteomyelitis with confirmation of cellulitis When stable patient can be changed to oral antibiotic
[2019-07-08] MEDS: ACETAMINOPHEN 325 MG TABLET PO PRN (22:30)
[2019-07-09] MEDS: PANTOPRAZOLE SODIUM 20 MG TABLET.DR PO SCH (05:45)
[2019-07-09] MEDS: GABAPENTIN 300 MG CAPSULE PO SCH ×3 (05:45→21:13)
[2019-07-09] MEDS: VANCOMYCIN HCL 1,500 MG in DEXTROSE 5%-WATER 250 ML IV SCH ×3 (05:45→22:48)
[2019-07-09] MEDS: ACETAMINOPHEN 325 MG TABLET PO PRN ×2 (05:46→21:13)
[2019-07-09] MEDS: INSULIN REG, HUMAN 100 UNIT/ML 3 ML VIAL (PYX) SUBCUT SCH ×4 (08:21→21:15)
[2019-07-09] MEDS: LIPASE/PROTEASE/AMYLASE 1 CAP CAPSULE.DR PO SCH ×3 (08:23→16:35)
--- NOTE | 2019-07-09 10:18 | PDOC PROGRESS REPORT ---
Subjective Progress Note for:: 07/09/19 Subjective:: feels ok sl tenderness left lateral edge of wound Reason For Visit: CELLULITIS,TYPE 2 DM Physical Exam Vital Signs: Temp Pulse Resp BP Pulse Ox 97.7 F 77 18 158/92 H 94 07/09/19 07:19 07/09/19 07:19 07/09/19 07:19 07/09/19 07:19 07/09/19 07:19 Intake & Output 07/08/19 07/09/19 07/10/19 06:59 06:59 06:59 Intake Total 1090 1600 250 Output Total 2150 3475 Balance -1060 -4817 250 Weight 97.8 kg 94.1 kg General appearance: PRESENT: no acute distress Head exam: PRESENT: normocephalic Eye exam: PRESENT: EOMI Ear exam: PRESENT: normal external ear exam Mouth exam: PRESENT: moist Teeth exam: PRESENT: poor dentation Neck exam: PRESENT: full ROM Respiratory exam: PRESENT: clear to auscultation arsenio Cardiovascular exam: PRESENT: RRR Pulses: PRESENT: normal femoral pulses Breast: PRESENT: Normal GI/Abdominal exam: PRESENT: soft Rectal exam: PRESENT: deferred Extremities exam: PRESENT: full ROM, other - left transmet site clean with min drainage sl erythema dorsum of foot (marked) previously it appeared ischemic, now hyperemic Neurological exam: PRESENT: alert Psychiatric exam: PRESENT: appropriate affect Skin exam: PRESENT: dry Results Laboratory Results: 07/08/19 05:53 07/07/19 13:40 07/03/19 06:44 Blood Blood Culture - Final NO GROWTH IN 5 DAYS Impressions: Foot X-Ray 07/03/19 01:02 IMPRESSION: No acute osseous abnormality is seen within the right foot. Chest X-Ray 07/05/19 00:00 IMPRESSION: REACTIVE AIRWAY DISEASE VERSUS VIRAL SYNDROME. NO CONSOLIDATION. Lower Extremity MRI 07/05/19 00:00 IMPRESSION: Limited due to extensive motion however no convincing MR evidence for acute osteomyelitis. Findings suggestive of cellulitis of the foot. Soft tissue ulcer along the plantar aspect of the distal foot near the second digit copyright 2010 [employer]- All Rights Reserved Assessment & Plan - Diagnosis (1) Cellulitis of right lower leg Is this a current diagnosis for this admission?: Yes (2) Diabetic infection of right foot Is this a current diagnosis for this admission?: Yes - Time Time Spent with patient: 35 or more minutes - Plan Summary Plan Summary: s/p left transmet wound ok no purulent drainage, sl cellulitis vs hyperemia dorsum will cont iv abx cont drain reassess in 24hrs
[2019-07-09] MEDS: GLIMEPIRIDE 4 MG TABLET PO SCH ×2 (10:26→18:49)
[2019-07-09] MEDS: ENOXAPARIN SODIUM INJ 40 MG/0.4 ML DISP.SYRIN SUBCUT SCH (10:26)
[2019-07-09] MEDS: DOCUSATE SODIUM 100 MG CAPSULE PO SCH (10:26)
[2019-07-09] MEDS: OXYCODONE-ACETAMINOPHEN 5-325 MG TABLET PO PRN ×2 (10:29→18:51)
[2019-07-09] MEDS: CEFEPIME 1 GM/D5W RTU 1 GM/50 ML RTUPB IV SCH ×2 (10:30→21:15)
[2019-07-09] MEDS: INSULIN GLARGINE,HUM.REC.ANLOG 1,000 UNIT/10 ML VIAL SUBCUT SCH ×2 (10:30→21:14)
--- NOTE | 2019-07-09 18:14 | PDOC PROGRESS REPORT ---
Subjective Progress Note for:: 07/09/19 Subjective:: This is a 49-year-old male was admitted for a severe right foot cellulitis eventually requiring a right TMA. No acute event overnight. Upon encounter this morning, he complains of pain on the right foot. He has been refusing his Percocet initially as he complained of having nausea from it. Reason For Visit: CELLULITIS,TYPE 2 DM Physical Exam Vital Signs: Temp Pulse Resp BP Pulse Ox 98.1 F 82 18 153/87 H 94 07/09/19 15:14 07/09/19 15:14 07/09/19 15:14 07/09/19 15:14 07/09/19 15:14 Intake & Output 07/08/19 07/09/19 07/10/19 06:59 06:59 06:59 Intake Total 1090 1600 1366 Output Total 2150 3475 600 Balance -1060 -1875 766 Weight 215 lb 9.793 oz 207 lb 7.28 oz General appearance: PRESENT: no acute distress, well-developed, well-nourished Head exam: PRESENT: atraumatic, normocephalic Eye exam: PRESENT: conjunctiva pink, EOMI, PERRLA. ABSENT: scleral icterus Ear exam: PRESENT: normal external ear exam Mouth exam: PRESENT: moist, tongue midline Neck exam: ABSENT: carotid bruit, JVD, lymphadenopathy, thyromegaly Respiratory exam: PRESENT: clear to auscultation arsenio. ABSENT: rales, rhonchi, wheezes Cardiovascular exam: PRESENT: RRR. ABSENT: diastolic murmur, rubs, systolic murmur Pulses: PRESENT: normal dorsalis pedis pul GI/Abdominal exam: PRESENT: normal bowel sounds, soft. ABSENT: distended, guarding, mass, organolmegaly, rebound, tenderness Rectal exam: PRESENT: deferred Extremities exam: PRESENT: other - + right TMA Neurological exam: PRESENT: alert, awake, oriented to person, oriented to place, oriented to time, oriented to situation, CN II-XII grossly intact. ABSENT: motor sensory deficit Results Laboratory Results: 07/08/19 05:53 07/07/19 13:40 Impressions: Foot X-Ray 07/03/19 01:02 IMPRESSION: No acute osseous abnormality is seen within the right foot. Chest X-Ray 07/05/19 00:00 IMPRESSION: REACTIVE AIRWAY DISEASE VERSUS VIRAL SYNDROME. NO CONSOLIDATION. Lower Extremity MRI 07/05/19 00:00 IMPRESSION: Limited due to extensive motion however no convincing MR evidence for acute osteomyelitis. Findings suggestive of cellulitis of the foot. Soft tissue ulcer along the plantar aspect of the distal foot near the second digit copyright 2011 [employer]- All Rights Reserved Assessment and Plan - Diagnosis (1) Cellulitis of right lower leg Is this a current diagnosis for this admission?: Yes Plan: improving. Continue antibiotics. (2) Diabetic infection of right foot Is this a current diagnosis for this admission?: Yes Plan: S/P right TMA. (3) Diabetes mellitus Qualifiers: Diabetes mellitus type: type 2 Diabetes mellitus complication detail: with unspecified neuropathy Is this a current diagnosis for this admission?: Yes Plan: Continue insulin regimen and glimeperide. - Plan Summary Summary: MRI done noted. No specific signs of osteomyelitis with confirmation of cellulitis When stable patient can be changed to oral antibiotic - Time Time Spent with patient: 25-34 minutes
[2019-07-10 06:23] LABS: ABSOLUTE EOSINOPHILS # (AUTO) 0.3 10^3/uL (0.0-0.6); ABSOLUTE MONOCYTES (AUTO) 0.5 10^3/uL (0.1-1.4); BASOPHILS % (AUTO) 0.8 % (0-2); HEMOGLOBIN 12.8 g/dL (13.5-17.0); LYMPHOCYTES % (AUTO) 17.3 % (13-45); MEAN CORPUSCULAR HEMOGLOBIN 28.8 pg (27.0-33.4); MEAN CORPUSCULAR HGB CONC 34.7 g/dL (32.0-36.0); MEAN CORPUSCULAR VOLUME 83 fl (80-97); MONOCYTES % (AUTO) 9.2 % (3-13); PLATELET COUNT 244 10^3/uL (150-450); RED BLOOD COUNT 4.46 10^6/uL (4.35-5.55); RED CELL DISTRIBUTION WIDTH 13.8 % (11.5-14.0); SEGMENTED NEUTROPHILS % (AUTO) 67.7 % (42-78); TOTAL CELLS COUNTED % (AUTO) 100 %; WHITE BLOOD COUNT 5.9 10^3/uL (4.0-10.5)
[2019-07-10] MEDS: PANTOPRAZOLE SODIUM 20 MG TABLET.DR PO SCH (06:30)
[2019-07-10] MEDS: GABAPENTIN 300 MG CAPSULE PO SCH ×3 (06:30→21:06)
[2019-07-10 06:59] LABS: ANION GAP 6 (5-19); BLOOD UREA NITROGEN 10 mg/dL (7-20); CALCIUM 8.9 mg/dL (8.4-10.2); CARBON DIOXIDE 31 mmol/L (22-30); CHLORIDE 100 mmol/L (98-107); GLUCOSE 73 mg/dL (75-110); POTASSIUM 4.1 mmol/L (3.6-5.0)
[2019-07-10] MEDS: INSULIN REG, HUMAN 100 UNIT/ML 3 ML VIAL (PYX) SUBCUT SCH ×4 (09:31→21:12)
[2019-07-10] MEDS: INSULIN GLARGINE,HUM.REC.ANLOG 1,000 UNIT/10 ML VIAL SUBCUT SCH ×2 (09:35→21:06)
[2019-07-10] MEDS: LIPASE/PROTEASE/AMYLASE 1 CAP CAPSULE.DR PO SCH ×3 (09:39→17:32)
[2019-07-10] MEDS: DOCUSATE SODIUM 100 MG CAPSULE PO SCH (09:39)
[2019-07-10] MEDS: ENOXAPARIN SODIUM INJ 40 MG/0.4 ML DISP.SYRIN SUBCUT SCH (09:39)
[2019-07-10] MEDS: GLIMEPIRIDE 4 MG TABLET PO SCH ×2 (09:39→17:32)
[2019-07-10] MEDS ORDERED: AMPICILLIN SOD/SULBACTAM 1.5 GM VIAL IV SCH (13:00)
--- NOTE | 2019-07-10 14:17 | PDOC PROGRESS REPORT ---
Subjective Progress Note for:: 07/10/19 Subjective:: This is a 49-year-old male was admitted for a severe right foot cellulitis eventually requiring a right TMA. 07/09: Upon encounter this morning, he complains of pain on the right foot. He has been refusing his Percocet initially as he complained of having nausea from it. 07/10: No acute event overnight. Pain is well controlled. Right foot swelling is slightly improved compared to yesterday. Right foot still looks very erythematous. Reason For Visit: CELLULITIS,TYPE 2 DM Physical Exam Vital Signs: Temp Pulse Resp BP Pulse Ox 98.7 F 84 18 152/82 H 94 07/10/19 11:10 07/10/19 11:10 07/10/19 11:10 07/10/19 11:10 07/10/19 11:10 Intake & Output 07/09/19 07/10/19 07/11/19 06:59 06:59 06:59 Intake Total 1600 2626 Output Total 3475 600 Balance -1875 2026 Weight 207 lb 7.28 oz 204 lb 5.896 oz General appearance: PRESENT: no acute distress, well-developed, well-nourished Head exam: PRESENT: atraumatic, normocephalic Eye exam: PRESENT: conjunctiva pink, EOMI, PERRLA. ABSENT: scleral icterus Ear exam: PRESENT: normal external ear exam Mouth exam: PRESENT: moist, tongue midline Neck exam: ABSENT: carotid bruit, JVD, lymphadenopathy, thyromegaly Respiratory exam: PRESENT: clear to auscultation arsenio. ABSENT: rales, rhonchi, wheezes Cardiovascular exam: PRESENT: RRR. ABSENT: diastolic murmur, rubs, systolic murmur Pulses: PRESENT: normal dorsalis pedis pul GI/Abdominal exam: PRESENT: normal bowel sounds, soft. ABSENT: distended, guarding, mass, organolmegaly, rebound, tenderness Rectal exam: PRESENT: deferred Extremities exam: PRESENT: other - Right foot swelling is slightly improved compared to yesterday. Right foot still looks very erythematous. Neurological exam: PRESENT: alert, awake, oriented to person, oriented to place, oriented to time, oriented to situation, CN II-XII grossly intact. ABSENT: motor sensory deficit Results Laboratory Results: 07/10/19 05:18 07/10/19 05:18 07/10/19 07/10/19 05:18 05:18 WBC 5.9 RBC 4.46 Hgb 12.8 L Hct 37.0 L MCV 83 MCH 28.8 MCHC 34.7 RDW 13.8 Plt Count 244 Seg Neutrophils % 67.7 Sodium 136.6 L Potassium 4.1 Chloride 100 Carbon Dioxide 31 H Anion Gap 6 BUN 10 Creatinine 0.67 Est GFR ( Amer) > 60 Glucose 73 L Calcium 8.9 Impressions: Foot X-Ray 07/03/19 01:02 IMPRESSION: No acute osseous abnormality is seen within the right foot. Chest X-Ray 07/05/19 00:00 IMPRESSION: REACTIVE AIRWAY DISEASE VERSUS VIRAL SYNDROME. NO CONSOLIDATION. Lower Extremity MRI 07/05/19 00:00 IMPRESSION: Limited due to extensive motion however no convincing MR evidence for acute osteomyelitis. Findings suggestive of cellulitis of the foot. Soft tissue ulcer along the plantar aspect of the distal foot near the second digit copyright 2011 [employer]- All Rights Reserved Assessment and Plan - Diagnosis (1) Cellulitis of right lower leg Is this a current diagnosis for this admission?: Yes Plan: Right foot swelling is slightly improved compared to yesterday. Right foot still looks very erythematous. Will continue IV antibiotics for now. (2) Diabetic infection of right foot Is this a current diagnosis for this admission?: Yes Plan: S/P right TMA. (3) Diabetes mellitus Qualifiers: Diabetes mellitus type: type 2 Diabetes mellitus complication detail: with unspecified neuropathy Is this a current diagnosis for this admission?: Yes Plan: Continue insulin regimen and glimeperide. (4) HTN (hypertension) Is this a current diagnosis for this admission?: Yes Plan: Start patient on losartan. - Plan Summary Summary: MRI done noted. No specific signs of osteomyelitis with confirmation of cellulitis When stable patient can be changed to oral antibiotic - Time Time Spent with patient: 25-34 minutes
[2019-07-10] MEDS: LOSARTAN POTASSIUM 50 MG TABLET PO SCH (14:55)
[2019-07-10] MEDS: AMPICILLIN SODIUM/SULBACTAM NA 1.5 GM in NORMAL SALINE 50 ML IV SCH ×2 (14:55→21:05)
[2019-07-10] MEDS: ACETAMINOPHEN 325 MG TABLET PO PRN ×2 (15:06→21:06)
--- NOTE | 2019-07-10 15:31 | PDOC PROGRESS REPORT ---
Subjective Progress Note for:: 07/10/19 Reason For Visit: CELLULITIS,TYPE 2 DM Physical Exam Vital Signs: Temp Pulse Resp BP Pulse Ox 98.7 F 84 18 152/82 H 94 07/10/19 11:10 07/10/19 11:10 07/10/19 11:10 07/10/19 11:10 07/10/19 11:10 Intake & Output 07/09/19 07/10/19 07/11/19 06:59 06:59 06:59 Intake Total 1600 2626 590 Output Total 3475 600 Balance -1872025 590 Weight 94.1 kg 92.7 kg 92.7 kg Results Laboratory Results: 07/10/19 05:18 07/10/19 05:18 07/10/19 07/10/19 05:18 05:18 WBC 5.9 RBC 4.46 Hgb 12.8 L Hct 37.0 L MCV 83 MCH 28.8 MCHC 34.7 RDW 13.8 Plt Count 244 Seg Neutrophils % 67.7 Sodium 136.6 L Potassium 4.1 Chloride 100 Carbon Dioxide 31 H Anion Gap 6 BUN 10 Creatinine 0.67 Est GFR ( Amer) > 60 Glucose 73 L Calcium 8.9 Impressions: Foot X-Ray 07/03/19 01:02 IMPRESSION: No acute osseous abnormality is seen within the right foot. Chest X-Ray 07/05/19 00:00 IMPRESSION: REACTIVE AIRWAY DISEASE VERSUS VIRAL SYNDROME. NO CONSOLIDATION. Lower Extremity MRI 07/05/19 00:00 IMPRESSION: Limited due to extensive motion however no convincing MR evidence for acute osteomyelitis. Findings suggestive of cellulitis of the foot. Soft tissue ulcer along the plantar aspect of the distal foot near the second digit copyright 2011 [employer]- All Rights Reserved Assessment & Plan - Diagnosis (1) Ischemic ulcer of toe of right foot Qualifiers: Non-pressure ulcer stage: unspecified non-pressure ulcer stage Qualified Code(s): L97.519 - Non-pressure chronic ulcer of other part of right foot with unspecified severity Is this a current diagnosis for this admission?: Yes - Time Time Spent with patient: Less than 15 minutes - Plan Summary Plan Summary: This is a 53-year-old male status post transmetatarsal amputation. The patient continues to have redness and bruising of the foot. At this time, it is unclear whether this represents continued infection/necrosis or merely bruising related to surgery. The patient reports that it is "improving". I recommend continued close observation to ensure that the bruising resolves. The patient's [place] drain was removed today. I have encouraged the patient to avoid weightbearing on the forefoot. He may weight-bear on the heel only. I have also encouraged patient to keep the foot elevated, above the level of the heart (when possible). Surgery will continue to follow the patient very closely.
[2019-07-10] MEDS: OXYCODONE-ACETAMINOPHEN 5-325 MG TABLET PO PRN (17:35)
[2019-07-11] MEDS: AMPICILLIN SODIUM/SULBACTAM NA 1.5 GM in NORMAL SALINE 50 ML IV SCH ×4 (04:25→20:24)
[2019-07-11] MEDS: OXYCODONE-ACETAMINOPHEN 5-325 MG TABLET PO PRN ×3 (05:26→20:30)
[2019-07-11] MEDS: PANTOPRAZOLE SODIUM 20 MG TABLET.DR PO SCH (05:26)
[2019-07-11] MEDS: GABAPENTIN 300 MG CAPSULE PO SCH ×3 (05:26→22:30)
[2019-07-11] MEDS: INSULIN REG, HUMAN 100 UNIT/ML 3 ML VIAL (PYX) SUBCUT SCH ×4 (08:48→22:30)
[2019-07-11] MEDS: LIPASE/PROTEASE/AMYLASE 1 CAP CAPSULE.DR PO SCH ×3 (08:59→17:37)
[2019-07-11] MEDS: GLIMEPIRIDE 4 MG TABLET PO SCH ×2 (09:00→17:37)
[2019-07-11] MEDS: ENOXAPARIN SODIUM INJ 40 MG/0.4 ML DISP.SYRIN SUBCUT SCH (09:00)
[2019-07-11] MEDS: DOCUSATE SODIUM 100 MG CAPSULE PO SCH (09:00)
[2019-07-11] MEDS: LOSARTAN POTASSIUM 50 MG TABLET PO SCH (09:00)
[2019-07-11] MEDS: INSULIN GLARGINE,HUM.REC.ANLOG 1,000 UNIT/10 ML VIAL SUBCUT SCH ×2 (09:01→22:30)
--- NOTE | 2019-07-11 12:15 | PDOC PROGRESS REPORT ---
Subjective Progress Note for:: 07/11/19 Reason For Visit: CELLULITIS,TYPE 2 DM Patient has no complaints; has gotten up a little too much, and is bumped his foot. Physical Exam Vital Signs: Temp Pulse Resp BP Pulse Ox 98.2 F 78 19 162/90 H 92 07/11/19 07:44 07/11/19 07:44 07/11/19 07:44 07/11/19 07:44 07/11/19 07:44 Intake & Output 07/10/19 07/11/19 07/12/19 06:59 06:59 06:59 Intake Total 2626 1306 Output Total 600 Balance 2025 130 Weight 92.7 kg 92.5 kg General appearance: PRESENT: no acute distress Musculoskeletal exam: PRESENT: other - Right foot dressing removed. All sutures intact. There is some bruising to the foot, however at the distal forefoot at site of metatarsal transection is erythematous, and tender; I cannot express any foul smell or drainage. Results Laboratory Results: 07/10/19 05:18 07/10/19 05:18 Impressions: Foot X-Ray 07/03/19 01:02 IMPRESSION: No acute osseous abnormality is seen within the right foot. Chest X-Ray 07/05/19 00:00 IMPRESSION: REACTIVE AIRWAY DISEASE VERSUS VIRAL SYNDROME. NO CONSOLIDATION. Lower Extremity MRI 07/05/19 00:00 IMPRESSION: Limited due to extensive motion however no convincing MR evidence for acute osteomyelitis. Findings suggestive of cellulitis of the foot. Soft tissue ulcer along the plantar aspect of the distal foot near the second digit copyright 2011 [employer]- All Rights Reserved Assessment & Plan - Diagnosis (1) Diabetic infection of right foot Is this a current diagnosis for this admission?: Yes Plan: Impression: Postoperative day 4 status post transmetatarsal amputation right foot, doing reasonably well; distinct erythema of the distal stump bears watching Recommendations: 1. Suggested nonweight bearing right foot; may transfer from bed to chair. 2. Instructed nurses on dressing changes with Mariana Aragon. 3. Explained to patient his foot was not out of the rai and he needed to take care to protect it. 4. Continue empiric antibiotic therapy. - Time Time Spent with patient: 15-24 minutes
[2019-07-11] MEDS ORDERED: ONDANSETRON HCL INJ/PF 4 MG/2 ML SDV IV PRN (12:30)
--- NOTE | 2019-07-11 16:13 | PDOC PROGRESS REPORT ---
Subjective Progress Note for:: 07/11/19 Subjective:: This is a 49-year-old male was admitted for a severe right foot cellulitis eventually requiring a right TMA. 07/09: Upon encounter this morning, he complains of pain on the right foot. He has been refusing his Percocet initially as he complained of having nausea from it. 07/10: No acute event overnight. Pain is well controlled. Right foot swelling is slightly improved compared to yesterday. Right foot still looks very erythematous. 07/11: No acute event overnight. Patient denies acute complaints. There is noticeable improvement on the right foot. Erythema and swelling have improved compared to yesterday. Reason For Visit: CELLULITIS,TYPE 2 DM Physical Exam Vital Signs: Temp Pulse Resp BP Pulse Ox 98.0 F 82 19 162/88 H 96 07/11/19 10:33 07/11/19 10:33 07/11/19 10:33 07/11/19 10:33 07/11/19 10:33 Intake & Output 07/10/19 07/11/19 07/12/19 06:59 06:59 06:59 Intake Total 2626 1306 50 Output Total 600 Balance 2026 1306 50 Weight 204 lb 5.896 oz 203 lb 14.841 oz General appearance: PRESENT: no acute distress, well-developed, well-nourished Head exam: PRESENT: atraumatic, normocephalic Eye exam: PRESENT: conjunctiva pink, EOMI, PERRLA. ABSENT: scleral icterus Ear exam: PRESENT: normal external ear exam Mouth exam: PRESENT: moist, tongue midline Neck exam: ABSENT: carotid bruit, JVD, lymphadenopathy, thyromegaly Respiratory exam: PRESENT: clear to auscultation arsenio. ABSENT: rales, rhonchi, wheezes Cardiovascular exam: PRESENT: RRR. ABSENT: diastolic murmur, rubs, systolic murmur Pulses: PRESENT: normal dorsalis pedis pul GI/Abdominal exam: PRESENT: normal bowel sounds, soft. ABSENT: distended, guarding, mass, organolmegaly, rebound, tenderness Rectal exam: PRESENT: deferred Extremities exam: PRESENT: other - There is noticeable improvement on the right foot. Erythema and swelling have improved compared to yesterday. Neurological exam: PRESENT: alert, awake, oriented to person, oriented to place, oriented to time, oriented to situation, CN II-XII grossly intact. ABSENT: motor sensory deficit Results Laboratory Results: 07/10/19 05:18 07/10/19 05:18 Impressions: Foot X-Ray 07/03/19 01:02 IMPRESSION: No acute osseous abnormality is seen within the right foot. Chest X-Ray 07/05/19 00:00 IMPRESSION: REACTIVE AIRWAY DISEASE VERSUS VIRAL SYNDROME. NO CONSOLIDATION. Lower Extremity MRI 07/05/19 00:00 IMPRESSION: Limited due to extensive motion however no convincing MR evidence for acute osteomyelitis. Findings suggestive of cellulitis of the foot. Soft tissue ulcer along the plantar aspect of the distal foot near the second digit copyright 2011 [employer]- All Rights Reserved Assessment and Plan - Diagnosis (1) Cellulitis of right lower leg Is this a current diagnosis for this admission?: Yes Plan: 07/11: Improving. Will continue IV antibiotics for now. (2) Diabetic infection of right foot Is this a current diagnosis for this admission?: Yes Plan: S/P right TMA. (3) Diabetes mellitus Qualifiers: Diabetes mellitus type: type 2 Diabetes mellitus complication detail: with unspecified neuropathy Is this a current diagnosis for this admission?: Yes Plan: Continue insulin regimen and glimeperide. (4) HTN (hypertension) Is this a current diagnosis for this admission?: Yes Plan: Continue losartan. - Plan Summary Summary: MRI done noted. No specific signs of osteomyelitis with confirmation of cellulitis When stable patient can be changed to oral antibiotic - Time Time Spent with patient: 25-34 minutes
[2019-07-12] MEDS: AMPICILLIN SODIUM/SULBACTAM NA 1.5 GM in NORMAL SALINE 50 ML IV SCH ×4 (03:31→21:36)
[2019-07-12] MEDS: PANTOPRAZOLE SODIUM 20 MG TABLET.DR PO SCH (05:43)
[2019-07-12] MEDS: GABAPENTIN 300 MG CAPSULE PO SCH ×3 (05:43→21:36)
[2019-07-12] MEDS: INSULIN REG, HUMAN 100 UNIT/ML 3 ML VIAL (PYX) SUBCUT SCH ×4 (07:35→21:37)
[2019-07-12] MEDS: LIPASE/PROTEASE/AMYLASE 1 CAP CAPSULE.DR PO SCH ×3 (07:38→17:35)
[2019-07-12] MEDS: OXYCODONE-ACETAMINOPHEN 5-325 MG TABLET PO PRN (07:40)
[2019-07-12] MEDS: DOCUSATE SODIUM 100 MG CAPSULE PO SCH (10:51)
[2019-07-12] MEDS: LOSARTAN POTASSIUM 50 MG TABLET PO SCH (10:51)
[2019-07-12] MEDS: INSULIN GLARGINE,HUM.REC.ANLOG 1,000 UNIT/10 ML VIAL SUBCUT SCH ×2 (10:51→21:37)
[2019-07-12] MEDS: GLIMEPIRIDE 4 MG TABLET PO SCH ×2 (10:51→17:35)
[2019-07-12] MEDS: ENOXAPARIN SODIUM INJ 40 MG/0.4 ML DISP.SYRIN SUBCUT SCH (10:53)
--- NOTE | 2019-07-12 12:11 | PDOC PROGRESS REPORT ---
Subjective Progress Note for:: 07/12/19 Subjective:: rt diabetic foot infection, s/p tma rt foot Reason For Visit: CELLULITIS,TYPE 2 DM Physical Exam Vital Signs: Temp Pulse Resp BP Pulse Ox 97.4 F 85 21 H 154/89 H 95 07/12/19 00:11 07/12/19 00:11 07/12/19 00:11 07/12/19 00:11 07/12/19 00:11 Intake & Output 07/11/19 07/12/19 07/13/19 06:59 06:59 06:59 Intake Total 1306 1377 Balance 1306 1377 Weight 92.5 kg 91.5 kg General appearance: PRESENT: no acute distress Head exam: PRESENT: normocephalic Eye exam: PRESENT: EOMI Ear exam: PRESENT: normal external ear exam Mouth exam: PRESENT: moist Teeth exam: PRESENT: poor dentation Neck exam: PRESENT: full ROM Respiratory exam: PRESENT: clear to auscultation arsenio Cardiovascular exam: PRESENT: RRR Pulses: PRESENT: normal radial pulses, normal femoral pulses, +2 pedal pulses bilateral Vascular exam: PRESENT: normal capillary refill Breast: PRESENT: Normal GI/Abdominal exam: PRESENT: soft Rectal exam: PRESENT: deferred Extremities exam: PRESENT: full ROM Musculoskeletal exam: PRESENT: full ROM Neurological exam: PRESENT: alert, awake, oriented to person, oriented to place Psychiatric exam: PRESENT: appropriate affect Skin exam: PRESENT: dry Results Laboratory Results: 07/10/19 05:18 07/10/19 05:18 Impressions: Foot X-Ray 07/03/19 01:02 IMPRESSION: No acute osseous abnormality is seen within the right foot. Chest X-Ray 07/05/19 00:00 IMPRESSION: REACTIVE AIRWAY DISEASE VERSUS VIRAL SYNDROME. NO CONSOLIDATION. Lower Extremity MRI 07/05/19 00:00 IMPRESSION: Limited due to extensive motion however no convincing MR evidence for acute osteomyelitis. Findings suggestive of cellulitis of the foot. Soft tissue ulcer along the plantar aspect of the distal foot near the second digit copyright 2011 [email or web address]- All Rights Reserved Assessment & Plan - Diagnosis (1) Cellulitis of right lower leg Is this a current diagnosis for this admission?: Yes (2) Diabetic infection of right foot Is this a current diagnosis for this admission?: Yes - Time Time Spent with patient: 35 or more minutes - Plan Summary Plan Summary: s/p rt transmet rt wound examined, appears clean, no purulent drainage ecchymosis improved along dorsum plan cont iv abx for on or two more days then if foot conts to improved, probably could be discharged home on nwb to be followed up in surgery clinic.
--- NOTE | 2019-07-12 16:04 | PDOC PROGRESS REPORT ---
Subjective Progress Note for:: 07/12/19 Subjective:: This is a 49-year-old male was admitted for a severe right foot cellulitis eventually requiring a right TMA. 07/09: Upon encounter this morning, he complains of pain on the right foot. He has been refusing his Percocet initially as he complained of having nausea from it. 07/10: No acute event overnight. Pain is well controlled. Right foot swelling is slightly improved compared to yesterday. Right foot still looks very erythematous. 07/11: No acute event overnight. Patient denies acute complaints. There is noticeable improvement on the right foot. Erythema and swelling have improved compared to yesterday. 07/12: Right foot continues to show improvement. There is less erythema and swelling today. However after encounter patient accidentally bumped and hit his right foot hard while going to the bathroom and had bleeding from the surgical wound. On reassessment, dressing was soaked and he had oozing blood in between the shanika. Bleeding stopped spontaneously. Reason For Visit: CELLULITIS,TYPE 2 DM Physical Exam Vital Signs: Temp Pulse Resp BP Pulse Ox 98.4 F 81 18 147/85 H 94 07/12/19 11:09 07/12/19 11:09 07/12/19 11:09 07/12/19 11:09 07/12/19 11:09 Intake & Output 07/11/19 07/12/19 07/13/19 06:59 06:59 06:59 Intake Total 1306 1377 630 Balance 1306 1377 630 Weight 203 lb 14.841 oz 201 lb 11.567 oz General appearance: PRESENT: no acute distress, well-developed, well-nourished Head exam: PRESENT: atraumatic, normocephalic Eye exam: PRESENT: conjunctiva pink, EOMI, PERRLA. ABSENT: scleral icterus Ear exam: PRESENT: normal external ear exam Mouth exam: PRESENT: moist, tongue midline Neck exam: ABSENT: carotid bruit, JVD, lymphadenopathy, thyromegaly Respiratory exam: PRESENT: clear to auscultation arsenio. ABSENT: rales, rhonchi, wheezes Cardiovascular exam: PRESENT: RRR. ABSENT: diastolic murmur, rubs, systolic murmur Pulses: PRESENT: normal dorsalis pedis pul GI/Abdominal exam: PRESENT: normal bowel sounds, soft. ABSENT: distended, guarding, mass, organolmegaly, rebound, tenderness Rectal exam: PRESENT: deferred Neurological exam: PRESENT: alert, awake, oriented to person, oriented to place, oriented to time, oriented to situation, CN II-XII grossly intact. ABSENT: motor sensory deficit Results Laboratory Results: 07/10/19 05:18 07/10/19 05:18 Impressions: Foot X-Ray 07/03/19 01:02 IMPRESSION: No acute osseous abnormality is seen within the right foot. Chest X-Ray 07/05/19 00:00 IMPRESSION: REACTIVE AIRWAY DISEASE VERSUS VIRAL SYNDROME. NO CONSOLIDATION. Lower Extremity MRI 07/05/19 00:00 IMPRESSION: Limited due to extensive motion however no convincing MR evidence for acute osteomyelitis. Findings suggestive of cellulitis of the foot. Soft tissue ulcer along the plantar aspect of the distal foot near the second digit copyright 2011 [employer]- All Rights Reserved Assessment and Plan - Diagnosis (1) Cellulitis of right lower leg Is this a current diagnosis for this admission?: Yes Plan: 07/12: Improving. Will continue IV antibiotics for now. (2) Diabetic infection of right foot Is this a current diagnosis for this admission?: Yes Plan: S/P right TMA. (3) Diabetes mellitus Qualifiers: Diabetes mellitus type: type 2 Diabetes mellitus complication detail: with unspecified neuropathy Is this a current diagnosis for this admission?: Yes Plan: Continue insulin regimen and glimeperide. (4) HTN (hypertension) Is this a current diagnosis for this admission?: Yes Plan: Continue losartan. - Plan Summary Summary: MRI done noted. No specific signs of osteomyelitis with confirmation of cellulitis When stable patient can be changed to oral antibiotic - Time Time Spent with patient: 25-34 minutes
[2019-07-13] MEDS: AMPICILLIN SODIUM/SULBACTAM NA 1.5 GM in NORMAL SALINE 50 ML IV SCH ×2 (03:23→08:55)
[2019-07-13] MEDS: GABAPENTIN 300 MG CAPSULE PO SCH (06:10)
[2019-07-13] MEDS: PANTOPRAZOLE SODIUM 20 MG TABLET.DR PO SCH (06:10)
[2019-07-13] MEDS: LIPASE/PROTEASE/AMYLASE 1 CAP CAPSULE.DR PO SCH (07:30)
[2019-07-13] MEDS: INSULIN REG, HUMAN 100 UNIT/ML 3 ML VIAL (PYX) SUBCUT SCH (07:30)
[2019-07-13] MEDS: OXYCODONE-ACETAMINOPHEN 5-325 MG TABLET PO PRN (07:51)
[2019-07-13] MEDS: GLIMEPIRIDE 4 MG TABLET PO SCH (09:22)
[2019-07-13] MEDS: LOSARTAN POTASSIUM 50 MG TABLET PO SCH (09:22)
[2019-07-13] MEDS: INSULIN GLARGINE,HUM.REC.ANLOG 1,000 UNIT/10 ML VIAL SUBCUT SCH (09:22)
[2019-07-13] MEDS: DOCUSATE SODIUM 100 MG CAPSULE PO SCH ×2 (09:22→09:55)
[2019-07-13] MEDS: ENOXAPARIN SODIUM INJ 40 MG/0.4 ML DISP.SYRIN SUBCUT SCH (09:23)
--- NOTE | 2019-07-13 10:07 | PDOC PROGRESS REPORT ---
Subjective Progress Note for:: 07/13/19 Reason For Visit: CELLULITIS,TYPE 2 DM Physical Exam Vital Signs: Temp Pulse Resp BP Pulse Ox 98.4 F 80 17 156/86 H 94 07/13/19 07:32 07/13/19 07:32 07/13/19 07:32 07/13/19 07:32 07/13/19 07:32 Intake & Output 07/12/19 07/13/19 07/14/19 06:59 06:59 06:59 Intake Total 1377 1224 Balance 1377 1224 Weight 91.5 kg 91.5 kg Results Laboratory Results: 07/10/19 05:18 07/10/19 05:18 Impressions: Foot X-Ray 07/03/19 01:02 IMPRESSION: No acute osseous abnormality is seen within the right foot. Chest X-Ray 07/05/19 00:00 IMPRESSION: REACTIVE AIRWAY DISEASE VERSUS VIRAL SYNDROME. NO CONSOLIDATION. Lower Extremity MRI 07/05/19 00:00 IMPRESSION: Limited due to extensive motion however no convincing MR evidence for acute osteomyelitis. Findings suggestive of cellulitis of the foot. Soft tissue ulcer along the plantar aspect of the distal foot near the second digit copyright 2011 [employer]- All Rights Reserved Assessment & Plan - Diagnosis (1) Ischemic ulcer of toe of right foot Qualifiers: Non-pressure ulcer stage: unspecified non-pressure ulcer stage Qualified Code(s): L97.519 - Non-pressure chronic ulcer of other part of right foot with unspecified severity Is this a current diagnosis for this admission?: Yes - Time Time Spent with patient: Less than 15 minutes - Plan Summary Plan Summary: This a 53-year-old male status post transmetatarsal amputation. Overall his physical exam is improving. He reports that he is ambulating better. At this time, I believe he is stable for discharge from a surgical standpoint. He should follow-up with [place] [facility] in 7 to 10 days to monitor the incision. He should limit pressure to the forefoot. He is okay for touchdown and minimal weightbearing to the heel.
[2019-07-13] MEDS ORDERED: TRAMADOL HCL 50 MG TABLET PO ONE (11:00)
[2019-07-13 11:56] VITALS: BP 152/82
--- NOTE | 2019-07-13 15:16 | PDOC DISCHARGE SUMMARY ---
Impression - Admit/DC Date/PCP Admission Date/Primary Care Provider: 07/03/19 08:16 GARETH KNIGHT NP Discharge Date: 07/13/19 - Discharge Diagnosis (1) Cellulitis of right lower leg Is this a current diagnosis for this admission?: Yes (2) Diabetic infection of right foot Is this a current diagnosis for this admission?: Yes (3) Diabetes mellitus Is this a current diagnosis for this admission?: Yes (4) HTN (hypertension) Is this a current diagnosis for this admission?: Yes - Assessment Summary: MRI done noted. No specific signs of osteomyelitis with confirmation of cellulitis When stable patient can be changed to oral antibiotic - Additional Information Discharge Diet: Diabetic Discharge Activity: Activity As Tolerated, Other Referrals: [facility] [Provider Group] (ginna lino, 07/06) Prescriptions: Amoxicillin/Potassium Clav [Augmentin 500-125 Tablet] 1 each PO BID 3 Days #6 tablet Losartan Potassium [Cozaar 50 mg Tablet] 50 mg PO DAILY #60 tablet Tramadol HCl [Ultram] 25 mg PO Q6HP PRN #10 tablet PRN Reason: For Pain Home Medications: Dapagliflozin Propanediol [Farxiga] 10 mg PO QAM 07/03/19 Gabapentin [Neurontin 300 mg Capsule] 600 mg PO Q8 07/03/19 Glimepiride [Amaryl 4 mg Tablet] 4 mg PO BID 07/03/19 Insulin Glargine,Hum.rec.anlog [Madina Dexter] 40 units SQ QAM 07/03/19 Lipase/Protease/Amylase [Denny Infante 40,000 Unit Capsule] 1 cap PO .SNACKS 07/03/19 Lipase/Protease/Amylase [Denny Infante 40,000 Unit Capsule] 1 cap PO MEALS 07/03/19 Omeprazole 20 mg PO DAILY 07/03/19 Acetaminophen [Tylenol 325 mg Tablet] 650 mg PO Q6HP PRN tablet 07/13/19 Amoxicillin/Potassium Clav [Augmentin 500-125 Tablet] 1 each PO BID 3 Days #6 tablet 07/13/19 Losartan Potassium [Cozaar 50 mg Tablet] 50 mg PO DAILY #60 tablet 07/13/19 Tramadol HCl [Ultram] 25 mg PO Q6HP PRN #10 tablet 07/13/19 History of Present Illiness History of Present Illness: Admitting hospitalist's H&P: CHONG TIAN is a 53 year old male. Who presents to the hospital with complaints of leg swelling and pain which started about 3 days ago. He denies any prior injury. He denies any fever nausea vomiting. He does have a history of type 2 diabetes mellitus that appears to be poorly controlled. He was noted to have a cellulitis in the emergency room and so he is been admitted for further management. Hospital Course Hospital Course: This is a 49-year-old male was admitted for a severe right foot cellulitis. He was started on IV antibiotics. Surgery was also consulted. Patient eventually required and underwent a right TMA. 07/09: Upon encounter this morning, he complains of pain on the right foot. He has been refusing his Percocet initially as he complained of having nausea from it. 07/10: No acute event overnight. Pain is well controlled. Right foot swelling is slightly improved compared to yesterday. Right foot still looks very erythematous. 07/11: No acute event overnight. Patient denies acute complaints. There is noticeable improvement on the right foot. Erythema and swelling have improved compared to yesterday. 07/12: Right foot continues to show improvement. There is less erythema and swelling today. However after encounter patient accidentally bumped and hit his right foot hard while going to the bathroom and had bleeding from the surgical wound. On reassessment, dressing was soaked and he had oozing blood in between the shanika. Bleeding stopped spontaneously. 07/13: Right foot has continued to show significant improvement. Patient was cleared for discharge by surgery. He will closely follow-up with the surgery clinic next week. Home health services for prison, wound care and home PT will be set up. Physical Exam Vital Signs: Temp Pulse Resp BP Pulse Ox 98.4 F 80 17 152/82 H 94 07/13/19 11:49 07/13/19 11:49 07/13/19 11:49 07/13/19 11:49 07/13/19 11:49 Intake & Output 07/12/19 07/13/19 07/14/19 06:59 06:59 06:59 Intake Total 1377 1224 480 Balance 1377 1224 480 Weight 201 lb 11.567 oz 201 lb 11.567 oz General appearance: PRESENT: no acute distress, well-developed, well-nourished Head exam: PRESENT: atraumatic, normocephalic Eye exam: PRESENT: conjunctiva pink, EOMI, PERRLA. ABSENT: scleral icterus Ear exam: PRESENT: normal external ear exam Mouth exam: PRESENT: moist, tongue midline Neck exam: ABSENT: carotid bruit, JVD, lymphadenopathy, thyromegaly Respiratory exam: PRESENT: clear to auscultation arsenio. ABSENT: rales, rhonchi, wheezes Cardiovascular exam: PRESENT: RRR. ABSENT: diastolic murmur, rubs, systolic murmur Pulses: PRESENT: normal dorsalis pedis pul GI/Abdominal exam: PRESENT: normal bowel sounds, soft. ABSENT: distended, guarding, mass, organolmegaly, rebound, tenderness Rectal exam: PRESENT: deferred Extremities exam: PRESENT: other - +right TMA Neurological exam: PRESENT: alert, awake, oriented to person, oriented to place, oriented to time, oriented to situation, CN II-XII grossly intact. ABSENT: motor sensory deficit Results Laboratory Results: WBC 5.9 10^3/uL (4.0-10.5) 07/10/19 05:18 RBC 4.46 10^6/uL (4.35-5.55) 07/10/19 05:18 Hgb 12.8 g/dL (13.5-17.0) L 07/10/19 05:18 Hct 37.0 % (37.9-51.0) L 07/10/19 05:18 MCV 83 fl (80-97) 07/10/19 05:18 MCH 28.8 pg (27.0-33.4) 07/10/19 05:18 MCHC 34.7 g/dL (32.0-36.0) 07/10/19 05:18 RDW 13.8 % (11.5-14.0) 07/10/19 05:18 Plt Count 244 10^3/uL (150-450) 07/10/19 05:18 Lymph % (Auto) 17.3 % (13-45) 07/10/19 05:18 [place] % (Auto) 9.2 % (3-13) 07/10/19 05:18 Eos % (Auto) 5.0 % (0-6) 07/10/19 05:18 Baso % (Auto) 0.8 % (0-2) 07/10/19 05:18 Absolute Neuts (auto) 4.0 10^3/uL (1.7-8.2) 07/10/19 05:18 Absolute Lymphs (auto) 1.0 10^3/uL (0.5-4.7) 07/10/19 05:18 Absolute Monos (auto) 0.5 10^3/uL (0.1-1.4) 07/10/19 05:18 Absolute Eos (auto) 0.3 10^3/uL (0.0-0.6) 07/10/19 05:18 Absolute Basos (auto) 0.0 10^3/uL (0.0-0.2) 07/10/19 05:18 Seg Neutrophils % 67.7 % (42-78) 07/10/19 05:18 VBG pH 7.40 (7.30-7.42) 07/03/19 04:32 VBG pCO2 40.6 mmHg (35-63) 07/03/19 04:32 VBG HCO3 24.7 mmol/L (20-32) 07/03/19 04:32 VBG Base Excess 0 mmol/L 07/03/19 04:32 Sodium 136.6 mmol/L (137-145) L 07/10/19 05:18 Potassium 4.1 mmol/L (3.6-5.0) 07/10/19 05:18 Chloride 100 mmol/L (98-107) 07/10/19 05:18 Carbon Dioxide 31 mmol/L (22-30) H 07/10/19 05:18 Anion Gap 6 (5-19) 07/10/19 05:18 BUN 10 mg/dL (7-20) 07/10/19 05:18 Creatinine 0.67 mg/dL (0.52-1.25) 07/10/19 05:18 Est GFR ( Amer) > 60 (>60) 07/10/19 05:18 Est GFR (MDRD) Non-Af > 60 (>60) 07/10/19 05:18 Glucose 73 mg/dL (75-110) L 07/10/19 05:18 POC Glucose 186 mg/dL (70-110) H 07/13/19 06:18 Hemoglobin A1c % 8.0 % (4.7-6.0) H 07/07/19 05:02 Calcium 8.9 mg/dL (8.4-10.2) 07/10/19 05:18 Total Bilirubin 0.6 mg/dL (0.2-1.3) 07/03/19 01:25 Direct Bilirubin 0.3 mg/dL (0.0-0.4) 07/03/19 01:25 Neonat Total Bilirubin Not Reportable 07/03/19 01:25 Neonat Direct Bilirubin Not Reportable 07/03/19 01:25 Neonat Indirect Bili Not Reportable 07/03/19 01:25 AST 33 U/L (17-59) 07/03/19 01:25 ALT 39 U/L (<50) 07/03/19 01:25 Alkaline Phosphatase 84 U/L (38-126) 07/03/19 01:25 Total Protein 6.6 g/dL (6.3-8.2) 07/03/19 01:25 Albumin 3.7 g/dL (3.5-5.0) 07/03/19 01:25 Beta-Hydroxybutyrate 2.6 mg/dL (.) 07/04/19 06:10 Time Trough Drawn 0600 07/06/19 06:00 Vancomycin Trough 12.9 ug/mL (5.0-20.0) 07/06/19 06:00 Impressions: Foot X-Ray 07/03/19 01:02 IMPRESSION: No acute osseous abnormality is seen within the right foot. Chest X-Ray 07/05/19 00:00 IMPRESSION: REACTIVE AIRWAY DISEASE VERSUS VIRAL SYNDROME. NO CONSOLIDATION. Lower Extremity MRI 07/05/19 00:00 IMPRESSION: Limited due to extensive motion however no convincing MR evidence for acute osteomyelitis. Findings suggestive of cellulitis of the foot. Soft tissue ulcer along the plantar aspect of the distal foot near the second digit copyright 2011 [employer]- All Rights Reserved Stroke Is this a Stroke Patient?: No Acute Heart Failure - Is this a Heart Failure Patient?: No
== END 2019-07-13 12:14 | disposition home health service (06) | DRG 617 ==
LOC: ER 00:27 → EH 08:16 → 4W 14:35
PROVIDERS: ADMIT Internal Medicine; ATTEND Internal Medicine
PROC: 0Y6M0ZB Detachment at Right Foot, Partial 2nd Ray, Open Approach (ICD-10-PCS; 2019-07-06)
PROC: 0Y6M0ZC Detachment at Right Foot, Partial 3rd Ray, Open Approach (ICD-10-PCS; 2019-07-06)
PROC: 0Y6M0ZD Detachment at Right Foot, Partial 4th Ray, Open Approach (ICD-10-PCS; 2019-07-06)
PROC: 0Y6M0ZF Detachment at Right Foot, Partial 5th Ray, Open Approach (ICD-10-PCS; 2019-07-06)
PROC: 0Y6M0Z9 Detachment at Right Foot, Partial 1st Ray, Open Approach (ICD-10-PCS; principal; 2019-07-06 16:00)
DX: E11.621 Type 2 diabetes mellitus with foot ulcer (principal); L03.115 Cellulitis of right lower limb; K86.0 Alcohol-induced chronic pancreatitis; L97.519 Non-pressure chronic ulcer of other part of right foot with unspecified severity; E11.40 Type 2 diabetes mellitus with diabetic neuropathy, unspecified; I10 Essential (primary) hypertension; E11.628 Type 2 diabetes mellitus with other skin complications; F17.210 Nicotine dependence, cigarettes, uncomplicated; Z96.641 Presence of right artificial hip joint; Z79.84 Long term (current) use of oral hypoglycemic drugs; Z79.4 Long term (current) use of insulin; Z79.899 Other long term (current) drug therapy
CPT/HCPCS: 01480; 36415; 71046; 80048; 80053; 80202; 82010; 82803; 82962; 83036; 85025; 87040; 88305; 88311; 93971; 96361; 96365; 99285; A9576; J0295; J0692; J1650; J1815; J1885; J2250; J2270; J2405; J2704; J2765; J3010; J3370; J3490; J7030; J7060; J7620; S0028